=== PATIENT | female | born 1935 | race Caucasian/White ===

== ENCOUNTER 2017-03-15 15:03 | Emergency (ER) | payer MEDICARE ==
[~2017-03-15] VITALS: Ht 162.6 cm; Wt 60.0 kg
[~2017-03-15 15:03] MED LIST: FISH100020 OR; TAB-TAB PO
[2017-03-15 15:06] VITALS: BP 212/106; PULSE 101; RESP 20; TEMP 97.7; O2SAT 94
[2017-03-15] MEDS ORDERED: LISI-515 PO (15:10)
[2017-03-15 15:29] VITALS: O2SAT 97
[2017-03-15] MEDS ORDERED: SODIUM CHLORIDE 0.9% FLUSH 10 ML FLUSH IVF PRN (15:30)
--- NOTE | 2017-03-15 15:32 | PD ---
HPI Chief Complaint: Neuro Symptoms/ Deficits Time Seen by Provider: 15:14 Travel History International Travel<30 days: No Contact w/Intl Traveler<30days: No Traveled to known affect area: No History of Present Illness HPI The patient was seen and examined in the presence of the nurse. This patient woke up this morning and at 10 AM she developed some slurring of speech. She checked her blood pressure now is significantly elevated and she took a 20 mg lisinopril. She was a Bit confused as well. She did not have any muscle weakness or sensory loss. Her noted that her right side of her face was drooping. No headache or head injury. She takes no blood thinners. No history of stroke or TIA. Duration is 5.5 hours. Her speech has significantly improved and is readily understandable still has subtle facial droop. PFSH Past Medical History Cancer: No Cardiovascular Problems: Yes (HTN) Diabetes: No Hepatitis: No Hiatal Hernia: No Hypertension: No Medical other: No Respiratory: No Thyroid Disease: No Past Surgical History Abdominal Surgery: No Cardiac Surgery: No Ear Surgery: No Endocrine Surgery: No Eye Surgery: Yes (cataract removal of the right eye) Genitourinary Surgery: No Gynecologic Surgery: Yes (BENIGN GROWTH ON CERVIX 40+ YRS AGO) Neurologic Surgery: No Oral Surgery: Yes (TONSILLECTOMY) Pacemaker: No Thoracic Surgery: No Other Surgery: Yes Social History Alcohol Use: No Tobacco Use: No Allergies-Medications (Allergen,Severity, Reaction): Coded Allergies: No Known Allergies (Verified , 03/15/17) Reported Meds & Prescriptions Reported Meds & Active Scripts Active Reported Lisinopril 20 Mg Tab 20 Mg PO BID Review of Systems General / Constitutional: No: Fever Eyes: No: Visual changes HENT: No: Headaches Cardiovascular: No: Chest Pain or Discomfort Respiratory: No: Shortness of Breath Gastrointestinal: No: Abdominal Pain Genitourinary: No: Dysuria Musculoskeletal: No: Pain Skin: No Rash Neurologic: Positive: Weakness, Slurred Speech Psychiatric: No: Depression Endocrine: No: Polydipsia Hematologic/Lymphatic: No: Easy Bruising Physical Exam Narrative GENERAL: Well-nourished, well-developed patient in no apparent distress. SKIN: Focused skin assessment reveals no rash and nodules. Skin is Warm and dry. HEAD: Atraumatic. Normocephalic. EYES: Pupils equal and round. No scleral icterus. No injection or drainage. ENT: No nasal bleeding or discharge. Mucous membranes pink and moist. NECK: Trachea midline. No JVD. CARDIOVASCULAR: Regular rate and rhythm. No murmur appreciated. RESPIRATORY: No accessory muscle use. Clear to auscultation. Breath sounds equal bilaterally. GASTROINTESTINAL: Abdomen soft, non-tender, nondistended. Hepatic and splenic margins not palpable. MUSCULOSKELETAL: No obvious deformities. No clubbing. No cyanosis. No edema. NEUROLOGICAL: Awake and alert. No obvious cranial nerve deficits. Motor grossly within normal limits other than a right sided facial droop. Understandable speech, minimal slurring. When the patient smiles the droop resolves. PSYCHIATRIC: Appropriate mood and affect; insight and judgment normal. Data Data Last Documented VS Vital Signs Date Time Temp Pulse Resp B/P Pulse Ox O2 Delivery O2 Flow Rate FiO2 03/15/17 16:47 88 18 97 Nasal Cannula 2 03/15/17 16:46 175/80 03/15/17 15:06 97.7 Orders Electrocardiogram (03/15/17 15:23) Prothrombin Time / Inr (Pt) (03/15/17 15:23) Act Partial Throm Time (Ptt) (03/15/17 15:23) Complete Blood Count With Diff (03/15/17 15:23) Basic Metabolic Panel (Bmp) (03/15/17 15:23) Ct Brain W/O Iv Contrast(Rout) (03/15/17 15:23) Ecg Monitoring (03/15/17 15:23) Iv Access Insert/Monitor (03/15/17 15:23) Oximetry (03/15/17 15:23) Blood Glucose (03/15/17 15:23) Sodium Chloride 0.9% Flush (Ns Flush) (03/15/17 15:30) Labs Laboratory Tests Test 03/15/17 15:29 White Blood Count 11.1 TH/MM3 Red Blood Count 5.03 MIL/MM3 Hemoglobin 15.4 GM/DL Hematocrit 45.4 % Mean Corpuscular Volume 90.2 FL Mean Corpuscular Hemoglobin 30.7 PG Mean Corpuscular Hemoglobin 34.0 % Concent Red Cell Distribution Width 14.1 % Platelet Count 238 TH/MM3 Mean Platelet Volume 7.9 FL Neutrophils (%) (Auto) 62.9 % Lymphocytes (%) (Auto) 29.6 % Monocytes (%) (Auto) 6.4 % Eosinophils (%) (Auto) 0.4 % Basophils (%) (Auto) 0.7 % Neutrophils # (Auto) 7.0 TH/MM3 Lymphocytes # (Auto) 3.3 TH/MM3 Monocytes # (Auto) 0.7 TH/MM3 Eosinophils # (Auto) 0.0 TH/MM3 Basophils # (Auto) 0.1 TH/MM3 CBC Comment DIFF FINAL Differential Comment Prothrombin Time 10.2 SEC Prothromb Time International 0.9 RATIO Ratio Activated Partial 30.2 SEC Thromboplast Time MDM Medical Decision Making Medical Screen Exam Complete: Yes Emergency Medical Condition: Yes Medical Record Reviewed: Yes Differential Diagnosis TIA, CVA, intracranial hemorrhage, hypertensive urgency Narrative Course I have reviewed the patient's electronic medical record. No prior visits for stroke IV placed Extended cardiac monitoring reveals sinus rhythm without ectopy I reviewed her EKG which shows sinus rhythm without ectopy CBC is normal Metabolic profile is normal Coagulation studies are normal Brain CT is normal Patient is 5-1/2 hours out from symptom onset and has already had significant spontaneous improvement and therefore it does not meet TPA criteria nor need official stroke alert. At this time symptoms are mild. I reviewed all the findings with the patient and at bedside. I recommended hospitalization for neurologic evaluation given her CVA/TIA findings However the patient does not want to stay. Patient and discuss it and they have decided they will decline my recommendations and sign out AGAINST MEDICAL ADVICE. I reviewed there were a risk for a full-blown stroke and permanent neurologic deficit. I gave her an aspirin and recommended she take a daily aspirin. She is to contact her physician as soon as possible. She should return if she worsens or changes her mind. Diagnosis Primary Impression: CVA (cerebrovascular accident) Qualified Code: I63.9 - Cerebrovascular accident (CVA), unspecified mechanism Disposition: 07 AGAINST MEDICAL ADVICE Keyon Fuentes MD Mar 15, 2017 15:32
[2017-03-15 15:50] LABS: BASOPHIL # 0.1 TH/MM3 (0-0.2); BASOPHIL % 0.7 % (0.0-2.0); EOSINOPHIL % 0.4 % (0.0-4.0); HEMATOCRIT 45.4 % (35.0-46.0); HEMO FLAGS DIFF FINAL; LYMPH % 29.6 % (9.0-44.0); LYMPHOCYTE # 3.3 TH/MM3 (1.0-4.8); MEAN CELL VOLUME 90.2 FL (80.0-100.0); MEAN CORPUSCULAR HEMOGLOBIN 30.7 PG (27.0-34.0); MONO % 6.4 % (0.0-8.0); NEUT % 62.9 % (16.0-70.0); PLATELET COUNT 238 TH/MM3 (150-450); RED BLOOD COUNT 5.03 MIL/MM3 (4.00-5.30); RED CELL DISTRIBUTION WIDTH 14.1 % (11.6-17.2); WHITE BLOOD COUNT 11.1 TH/MM3 (4.0-11.0)
[2017-03-15 16:01] LABS: APTT (PATIENT) 30.2 SEC (24.3-30.1); INTERNATIONAL NORMALIZED RATIO 0.9 RATIO; PROTHROMBIN TIME - PATIENT 10.2 SEC (9.8-11.6)
--- NOTE | 2017-03-15 16:45 | RADRPT ---
EXAM DATE/TIME: 03/15/2017 16:34 [facility] COMPARISON: No previous studies available for comparison. INDICATIONS : Facial droop; facial droop. RADIATION DOSE: 26.73 CTDIvol (mGy) MEDICAL HISTORY : Cardiovascular disease. Hypertension. SURGICAL HISTORY : None. ENCOUNTER: Initial ACUITY: 1 day PAIN SCALE: 0/10 LOCATION: cranial TECHNIQUE: Multiple contiguous axial images were obtained of the head. Using automated exposure control and adj ustment of the mA and/or kV according to patient size, radiation dose was kept as low as reasonably a chievable to obtain optimal diagnostic quality images. DICOM format image data is available electro nically for review and comparison. FINDINGS: CEREBRUM: The ventricles are normal for age. No evidence of midline shift, mass lesion, hemorrhage or acute in farction. No extra-axial fluid collections are seen. POSTERIOR FOSSA: The cerebellum and brainstem are intact. The 4th ventricle is midline. The cerebellopontine angle i s unremarkable. EXTRACRANIAL: The visualized portion of the orbits is intact. SKULL: The calvaria is intact. No evidence of skull fracture. CONCLUSION: Normal examination. Rian Bansal MD on March 15, 2017 at 16:43 Board Certified Radiologist. This report was verified electronically.
[2017-03-15 16:46] VITALS: BP 175/80; PULSE 88; RESP 18; O2SAT 97
[2017-03-15] MEDS ORDERED: ASPIRIN 325 MG TAB PO ONE (17:30)
[2017-03-15 17:37] LABS: POTASSIUM 3.9 MEQ/L (3.5-5.1)
--- NOTE | 2017-03-16 12:19 | EKG ---
Date Performed: 03/15/2017 Time Performed: 15:27:18 PTAGE: 81 years EKG: Sinus rhythm LEFT BUNDLE BRANCH BLOCK ABNORMAL ECG NO PREVIOUS TRACING DOCTOR: Sha Hill Interpretating Date/Time 03/16/2017 12:17:48
== END 2017-03-15 18:03 | disposition left against medical advice (07) ==
LOC: NEPE 15:03
DX: I63.9 Cerebral infarction, unspecified (principal); I10 Essential (primary) hypertension
CPT/HCPCS: 70450; 80048; 85025; 85610; 85730; 93005; 99285

== ENCOUNTER 2017-03-17 08:48 | Inpatient (IN) | payer MEDICARE ==
[~2017-03-17] VITALS: Ht 162.6 cm; Wt 65.2 kg
[~2017-03-17 08:48] MED LIST changes: -FISH100020 OR; +LISI-515 PO; -TAB-TAB PO
[2017-03-17 08:51] VITALS: BP 203/89; PULSE 93; RESP 20; TEMP 98.3; O2SAT 95
[2017-03-17 09:13] VITALS: BP 160/65; PULSE 84; RESP 20; O2SAT 93
[2017-03-17] MEDS ORDERED: SODIUM CHLORID 0.9% 500 ML INJ 500 ML IV ONE (09:15)
[2017-03-17] MEDS ORDERED: SODIUM CHLORIDE 0.9% FLUSH 10 ML FLUSH IVF PRN (09:15)
[2017-03-17 09:34] LABS: AUTOMATED NEUTROPHIL # 5.8 TH/MM3 (1.8-7.7); BASOPHIL % 0.3 % (0.0-2.0); EOSINOPHIL # 0.1 TH/MM3 (0-0.4); EOSINOPHIL % 0.7 % (0.0-4.0); HEMATOCRIT 46.3 % (35.0-46.0); HEMO FLAGS DIFF FINAL; LYMPH % 30.5 % (9.0-44.0); LYMPHOCYTE # 2.8 TH/MM3 (1.0-4.8); MEAN CELL VOLUME 90.6 FL (80.0-100.0); MEAN CORPUSCULAR HGB CONC 33.1 % (32.0-36.0); MONO % 6.7 % (0.0-8.0); NEUT % 61.8 % (16.0-70.0); PLATELET COUNT 243 TH/MM3 (150-450); RED CELL DISTRIBUTION WIDTH 14.3 % (11.6-17.2); WHITE BLOOD COUNT 9.3 TH/MM3 (4.0-11.0)
[2017-03-17 09:41] LABS: INTERNATIONAL NORMALIZED RATIO 0.9 RATIO; PROTHROMBIN TIME - PATIENT 10.4 SEC (9.8-11.6)
--- NOTE | 2017-03-17 09:43 | RADRPT ---
EXAM DATE/TIME: 03/17/2017 09:24 [facility] COMPARISON: CT BRAIN W/O CONTRAST, March 15, 2017, 16:34. INDICATIONS : Slurred speech and difficulty walking since this morning. RADIATION DOSE: 56.35 CTDIvol (mGy) MEDICAL HISTORY : Hypertension. SURGICAL HISTORY : None. ENCOUNTER: Initial ACUITY: 1 day PAIN SCALE: 0/10 LOCATION: cranial TECHNIQUE: Multiple contiguous axial images were obtained of the head. Using automated exposure control and adj ustment of the mA and/or kV according to patient size, radiation dose was kept as low as reasonably a chievable to obtain optimal diagnostic quality images. DICOM format image data is available electro nically for review and comparison. FINDINGS: CEREBRUM: The exam demonstrates a focal area of decreased attenuation involving the left caudate nucleus and in sular cortex. This is new compared to previous dated 03/15/17. Findings would be consistent with an ev olving area of cortical infarct. There is no evidence of hemorrhage within this. The ventricles are n ormal in size and configuration. No extra-axial hemorrhage is seen. POSTERIOR FOSSA: The cerebellum and brainstem are intact. The 4th ventricle is midline. The cerebellopontine angle i s unremarkable. EXTRACRANIAL: The visualized portion of the orbits is intact. SKULL: The calvaria is intact. No evidence of skull fracture. CONCLUSION: 1. Evolving area of cortical infarct measuring approximately 1.7 x 0.8 cm. This is centered in the le ft caudate nucleus and insular cortex. Jackson Rodriguez MD on March 17, 2017 at 9:39 Board Certified Radiologist. This report was verified electronically.
[2017-03-17 09:52] LABS: ANION GAP 8 MEQ/L (5-15); BACTERIA, URINE MANY /hpf; BICARBONATE 25.8 MEQ/L (21.0-32.0); BLOOD UREA NITROGEN 21 MG/DL (7-18); BLOOD, URINE NEG (NEG); CHLORIDE 106 MEQ/L (98-107); COMMENT (UR) CATH-CULTURE IND; CULTURE IF INDICATED CATH CULTURE IND; GLOMERULAR FILTRATION RATE 61 ML/MIN (>89); GLUCOSE,URINE NEG (NEG); KETONE, URINE NEG (NEG); MUCUS URINE FEW /lpf (OCC); NITRITE,URINE NEG (NEG); PH, URINE 5.5 (5.0-8.5); POTASSIUM 3.8 MEQ/L (3.5-5.1); SODIUM (NA) 140 MEQ/L (136-145); SQUAMOUS EPITHELIAL CELL URINE 8 /hpf (0-5); TRANSITIONAL EPI CELLS, URINE <1 /hpf; URINE COLOR YELLOW (YELLW/STRAW)
[2017-03-17] MEDS ORDERED: NITROFURANTOIN MONOHYD MACROCR 100 MG CAP PO ONE (10:15)
[2017-03-17] MEDS ORDERED: SODIUM CHLOR 0.9% 250 ML INJ 250 ML IV ONE (10:15)
--- NOTE | 2017-03-17 10:42 | PD ---
HPI Chief Complaint: Neuro Symptoms/ Deficits Time Seen by Provider: 09:02 Travel History International Travel<30 days: No Contact w/Intl Traveler<30days: No Traveled to known affect area: No History of Present Illness HPI 81-year-old female came to the emergency room brought by her with history of shaking and facial droop. Patient seems little confused and had shaking started at 7:30 this morning. At first she told me she woke up at 8:00 which did not make sense with her symptoms and then she corrected herself and said she woke up at 7. Patient was in the emergency room 2 days ago for facial droop and slurred speech. Patient says her symptoms are waxing and waning especially the facial droop. Her says that he had left home at 6:30 to take his grandchildren to school. Was complaining of the shaking at that point to her . However he wanted to drop the grandchildren to school first and then bring her to the emergency room. The time of onset at this point is really confusing. However as per the documentation from the previous ER physician 2 days ago patient did have a persistent facial droop at that point. The onset was 45 and half hours 2 days ago. Patient eventually corrected herself and said that the symptoms have been going on for 2-3 days. She was hypertensive upon arrival. She said she took all her morning pills including her blood pressure medication prior to coming in. Blood sugar was 113. PFSH Past Medical History Narrative Medical List of her past medical, surgical, social and family history as reviewed from the nursing note. Cancer: No Cardiovascular Problems: Yes (HTN) Diabetes: No Diminished Hearing: No Hepatitis: No Hiatal Hernia: No Hypertension: No Respiratory: No Thyroid Disease: No Past Surgical History Abdominal Surgery: No Cardiac Surgery: No Ear Surgery: No Endocrine Surgery: No Eye Surgery: Yes (cataract removal of the right eye) Genitourinary Surgery: No Gynecologic Surgery: Yes (BENIGN GROWTH ON CERVIX 40+ YRS AGO) Neurologic Surgery: No Oral Surgery: Yes (TONSILLECTOMY) Pacemaker: No Thoracic Surgery: No Tonsillectomy: Yes Other Surgery: Yes Social History Alcohol Use: No Tobacco Use: No Substance Use: No Allergies-Medications (Allergen,Severity, Reaction): Coded Allergies: No Known Allergies (Verified , 03/17/17) Comments No known drug allergies. Reported Meds & Prescriptions Reported Meds & Active Scripts Active Reported Lisinopril 20 Mg Tab 20 Mg PO BID Narrative Medication List of her home medications reviewed from the nursing note. Review of Systems Except as stated in HPI: all other systems reviewed are Neg Physical Exam Narrative GENERAL: Awake, alert, elderly, anxious, mild distress SKIN: Focused skin assessment warm/dry. HEAD: Atraumatic. Normocephalic. EYES: Pupils equal and round. No scleral icterus. No injection or drainage. ENT: No nasal bleeding or discharge. Mucous membranes pink and moist. NECK: Trachea midline. No JVD. CARDIOVASCULAR: Regular rate and rhythm. No murmur appreciated. RESPIRATORY: No accessory muscle use. Clear to auscultation. Breath sounds equal bilaterally. GASTROINTESTINAL: Abdomen soft, non-tender, nondistended. Hepatic and splenic margins not palpable. MUSCULOSKELETAL: No obvious deformities. No clubbing. No cyanosis. No edema. NEUROLOGICAL: Awake and alert. No obvious cranial nerve deficits. Motor grossly within normal limits. Facial droop on the right side, ataxia left upper extremity. Normal speech. PSYCHIATRIC: Appropriate mood and affect; insight and judgment normal. Data Data Last Documented VS Vital Signs Date Time Temp Pulse Resp B/P Pulse Ox O2 Delivery O2 Flow Rate FiO2 03/17/17 09:13 84 20 160/65 93 Room Air 03/17/17 08:51 98.3 Orders Electrocardiogram (03/17/17 09:04) Prothrombin Time / Inr (Pt) (03/17/17 09:04) Complete Blood Count With Diff (03/17/17 09:04) Basic Metabolic Panel (Bmp) (03/17/17 09:04) Troponin I (03/17/17 09:04) Urinalysis - C+S If Indicated (03/17/17 09:04) Ct Brain W/O Iv Contrast(Rout) (03/17/17 09:04) Ecg Monitoring (03/17/17 09:04) Iv Access Insert/Monitor (03/17/17 09:04) Oximetry (03/17/17 09:04) Sodium Chloride 0.9% Flush (Ns Flush) (03/17/17 09:15) Mra Brain W/O Contrast (Cow) (03/17/17 ) Sodium Chlorid 0.9% 500 Ml Inj (Ns 500 M (03/17/17 09:15) Urine Culture (03/17/17 09:15) Nitrofurantoin Monohyd Macrocr (Macrobid (03/17/17 10:15) Sodium Chlor 0.9% 250 Ml Inj (Ns 250 Ml (03/17/17 10:15) Consult Neurology (03/17/17 ) Admit Order (Ed Use Only) (03/17/17 10:35) Admit To Inpatient (03/17/17 ) Code Status (03/17/17 10:37) Vital Signs (Adult) Q4H (03/17/17 10:37) Activity Oob With Assistance (03/17/17 10:37) Screed Operator / Telemetry .CONTINUOUS (03/17/17 10:37) Diet Heart Healthy (03/17/17 Lunch) Sodium Chloride 0.9% Flush (Ns Flush) (03/17/17 10:45) Sodium Chloride 0.9% Flush (Ns Flush) (03/17/17 21:00) Acetaminophen (Tylenol) (03/17/17 10:45) Ondansetron Inj (Zofran Inj) (03/17/17 10:45) Temazepam (Restoril) (03/17/17 10:45) Basic Metabolic Panel (Bmp) (03/18/17 06:00) Complete Blood Count With Diff (03/18/17 06:00) Chest, Single Ap (03/17/17 10:37) Pt Request For Service (03/17/17 10:37) Scd Bilateral/Knee High KATI.BID (03/17/17 10:37) Naloxone Inj (Narcan Inj) (03/17/17 10:45) Magnesium Hydroxide Liq (Milk Of Magnesi (03/17/17 10:45) Inpatient Certification (03/17/17 ) Labs Laboratory Tests Test 03/17/17 09:15 White Blood Count 9.3 TH/MM3 Red Blood Count 5.10 MIL/MM3 Hemoglobin 15.3 GM/DL Hematocrit 46.3 % Mean Corpuscular Volume 90.6 FL Mean Corpuscular Hemoglobin 30.0 PG Mean Corpuscular Hemoglobin 33.1 % Concent Red Cell Distribution Width 14.3 % Platelet Count 243 TH/MM3 Mean Platelet Volume 7.5 FL Neutrophils (%) (Auto) 61.8 % Lymphocytes (%) (Auto) 30.5 % Monocytes (%) (Auto) 6.7 % Eosinophils (%) (Auto) 0.7 % Basophils (%) (Auto) 0.3 % Neutrophils # (Auto) 5.8 TH/MM3 Lymphocytes # (Auto) 2.8 TH/MM3 Monocytes # (Auto) 0.6 TH/MM3 Eosinophils # (Auto) 0.1 TH/MM3 Basophils # (Auto) 0.0 TH/MM3 CBC Comment DIFF FINAL Differential Comment Prothrombin Time 10.4 SEC Prothromb Time International 0.9 RATIO Ratio Urine Color YELLOW Urine Turbidity HAZY Urine pH 5.5 Urine Specific Longs 1.009 Urine Protein NEG mg/dL Urine Glucose (UA) NEG mg/dL Urine Ketones NEG mg/dL Urine Occult Blood NEG Urine Nitrite NEG Urine Bilirubin NEG Urine Urobilinogen LESS THAN 2.0 MG/DL Urine Leukocyte Esterase LARGE Urine RBC 7 /hpf Urine WBC 8 /hpf Urine Squamous Epithelial 8 /hpf Cells Urine Transitional Epithelial <1 /hpf Cells Urine Bacteria MANY /hpf Urine Mucus FEW /lpf Microscopic Urinalysis Comment CATH-CULTURE IND Sodium Level 140 MEQ/L Potassium Level 3.8 MEQ/L Chloride Level 106 MEQ/L Carbon Dioxide Level 25.8 MEQ/L Anion Gap 8 MEQ/L Blood Urea Nitrogen 21 MG/DL Creatinine 0.89 MG/DL Estimat Glomerular Filtration 61 ML/MIN Rate Random Glucose 113 MG/DL Calcium Level 9.0 MG/DL Troponin I LESS THAN 0.02 NG/ML Vitamin B12 Level 575 PG/ML Folate 61.8 NG/ML Free Thyroxine 1.11 NG/DL Thyroid Stimulating Hormone 3.290 uIU/ML [facility] Medical Decision Making Medical Screen Exam Complete: Yes Emergency Medical Condition: Yes Medical Record Reviewed: Yes Interpretation(s) Twelve-lead EKG was reviewed by me. Normal sinus rhythm, normal axis, left bundle branch block. Heart rate of 84 bpm. Differential Diagnosis CVA, intracranial hemorrhage, intracranial mass Narrative Course 10:41 AM the CAT scan showed an evolving stroke. I discussed the case with Dr. Hutchison who is on-call for neurology. He thinks this is probably a lacunar infarct from hypertension. He agreed to have the patient be admitted for observation and he will consult on the patient. Obviously there is no indication for TPA given the length of time that has elapsed. I let the patient now and she has agreed to stay this time. Patient appears to be very anxious and I'll give her a dose of Xanax. Procedures EKG Prior to Arrival: No Physician Communication Physician Communication Dr. Hutchison Diagnosis Primary Impression: CVA (cerebrovascular accident) Qualified Code: I63.9 - Cerebrovascular accident (CVA), unspecified mechanism Additional Impression: Acute lacunar stroke Admitting Information Admitting Physician Requests: Observation Scripts Aspirin 325 Mg Aar278 Mg PO DAILY #30 TAB Ref 0 Prov:Brittani Davis 03/19/17 Pravastatin (Pravachol)40 Mg Tab40 Mg PO HS #31 TAB Prov:Brittani Davis 03/19/17 Mario Puentes MD Mar 17, 2017 10:42
[2017-03-17] MEDS ORDERED: ACETAMINOPHEN 325 MG TAB PO PRN (10:45)
[2017-03-17] MEDS ORDERED: SODIUM CHLORIDE 0.9% FLUSH 10 ML FLUSH IV FLUSH PRN (10:45)
[2017-03-17] MEDS ORDERED: TEMAZEPAM 15 MG CAP PO PRN (10:45)
[2017-03-17] MEDS ORDERED: MAGNESIUM HYDROXIDE SUSP 30 ML CUP PO PRN (10:45)
[2017-03-17] MEDS ORDERED: ALPRAZolam 0.5 MG TAB PO ONE (10:45)
[2017-03-17] MEDS ORDERED: ONDANSETRON HCL 4 MG/2 ML VIAL IVP PRN (10:45)
[2017-03-17] MEDS ORDERED: NALOXONE HCL 0.4 MG/ML AMP IV PRN (10:45)
--- NOTE | 2017-03-17 11:39 | RADRPT ---
EXAM DATE/TIME: 03/17/2017 10:47 [facility] COMPARISON: No previous studies available for comparison. INDICATIONS : Cough. MEDICAL HISTORY : Hypertension. SURGICAL HISTORY : None. ENCOUNTER: Initial ACUITY: 1 month PAIN SCORE: 0/10 LOCATION: Bilateral chest FINDINGS: A single view of the chest demonstrates the lungs to be symmetrically aerated without evidence of mas s, infiltrate or effusion. The cardiomediastinal contours are unremarkable. Osseous structures are intact. CONCLUSION: No acute disease. Sergio Paz Jr., MD on March 17, 2017 at 11:37 Board Certified Radiologist. This report was verified electronically.
[2017-03-17] MEDS: ASPIRIN 325 MG TAB PO SCH (12:12)
--- NOTE | 2017-03-17 12:16 | RADRPT ---
EXAM DATE/TIME: 03/17/2017 11:31 [facility] COMPARISON: No previous studies available for comparison. INDICATIONS : CVA. Facial droop, slurred speech, and right sided weakness. MEDICAL HISTORY : Hypertension. SURGICAL HISTORY : None. ENCOUNTER: Initial ACUITY: 3 day PAIN SCORE: 1/10 LOCATION: Bilateral cranial TECHNIQUE: Multiplanar, multisequence MRI of the brain was performed without contrast. FINDINGS: The diffusion restriction images demonstrate a focal air restricted diffusion involving the left caud ate nucleus and insular cortex. Findings would be consistent with a subacute area of cortical infarct . The T2-weighted images demonstrate some punctate, scattered areas of T2 signal in the white matter mo st consistent with mild microvascular ischemic demyelinative change. The ventricles are normal in size and configuration. No abnormal extra-axial fluid collections are se en. The appearance of the posterior fossa is unremarkable. Sagittal T1-weighted images demonstrate normal formation of the corpus callosum and midline structure s. The cerebellar tonsils are in their appropriate location. The visualized portion of sinus and orbit are intact. CONCLUSION: 1. Focal area of acute/subacute cortical infarct involving the left caudate nucleus and insular nancy x. No findings to indicate hemorrhage are seen. 2. Mild microvascular ischemic demyelinative change. Jackson Rodriguez MD on March 17, 2017 at 12:11 Board Certified Radiologist. This report was verified electronically.
--- NOTE | 2017-03-17 12:22 | RADRPT ---
EXAM DATE/TIME: 03/17/2017 11:31 [facility] COMPARISON: No previous studies available for comparison. INDICATIONS : CVA. Facial droop, slurred speech, and right sided weakness. MEDICAL HISTORY : Hypertension. SURGICAL HISTORY : None. ENCOUNTER: Initial ACUITY: 3 day PAIN SCORE: 1/10 LOCATION: Bilateral distal Please note a normal MRA of the brain does not entirely exclude the possibility of a small aneurysm, nor the possibility of distal intracranial vessel disease. TECHNIQUE: 3D time of flight MRA was performed. Source images, multiplanar STS MIP, and 3D volume MIP reconstru ctions were reviewed. FINDINGS: There is excellent visualization of the major intracranial arteries out to the second-order branch ve ssels. There is no evidence for aneurysm, vessel truncation or stenosis, and no evidence for vascula r malformation. CONCLUSION: 1. 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 2. No large or central vessel occlusion identified within the intracranial circulation. Jackson Rodriguez MD on March 17, 2017 at 12:19 Board Certified Radiologist. This report was verified electronically.
[2017-03-17 12:45] VITALS: BP 159/77; PULSE 72; RESP 16; O2SAT 95
--- NOTE | 2017-03-17 15:33 | MB ---
cc: MIKEY DESAI MD DATE OF CONSULTATION: 03/17/2017 REASON FOR CONSULTATION Possible stroke. HISTORY OF PRESENT ILLNESS A 81-year-old female is seen as a neurology consult, is seen after she presented to the [facility] Emergency Room, brought by her because of history of questionable shaking and right facial droop. Initially the patient seemed confused as per medical records. The patient states that she had whole body shaking. Denies foaming, loss of bowel or bladder control, tongue biting. The was at the bedside along with her son, states that she had whole body shaking for a few seconds. Denies that she was disoriented or any postictal state. The patient also had a similar episode on Friday03/15/2017 and both episodes were associated with a very high blood pressure of initially on Friday 211/106, whereas this morning it was 203/89. The patient is not certain whether she may have missed or not a dose of her blood pressure medication. She takes "sometimes aspirin 81 mg". The patient also was noted for a slurred speech and right facial droop. Review of the clinical case with the ED physician was done and the patient does not meet the criteria of IV TPA because the onset of the symptoms was outside the window as the onset of the symptom was [address] scan without contrast done in the emergency room initially on 2016 was reported as unremarkable. A followup head CT scan on 03/17/2017 revealed an evolving left caudate acute to subacute ischemic infarct. REVIEW OF SYSTEMS A 12-point review of systems is negative except for what is stated in the HPI. PAST MEDICAL HISTORY Hypertension. PAST SURGICAL HISTORY Cataract, tonsillectomy SOCIAL HISTORY Denies alcohol, tobacco or illicit drug abuse. ALLERGIES No known allergies. MEDICATIONS Lisinopril and occasional aspirin 81. PHYSICAL EXAMINATION GENERAL: Awake, alert, oriented, pleasant, good historian. HEENT: Atraumatic, normocephalic. Intact hearing. Intact vision. NECK: Supple. No carotid bruit. CARDIOVASCULAR: Regular rate and rhythm. RESPIRATORY: Clear to auscultation. No wheezes. GASTROINTESTINAL: Soft abdomen, nontender. MUSCULOSKELETAL: No deformity. No cyanosis. Moves extremities equally. NEUROLOGIC: Awake, alert, oriented to time, person and place. Mild dysarthria. No dysphagia. Intact reading, intact repetition and naming. Right facial nerve palsy. No nystagmus. Intact external ocular motility. Subtle right arm drift, 5-/5 right shoulder abduction and right hip flexion, otherwise 5/5 throughout. No abnormal movement, normal tone. Intact sensation bilateral and symmetrical. Intact cerebellar function bilateral and symmetrical. Reflexes 2+ bilateral and symmetrical. Plantars are bilaterally downgoing. PSYCHIATRIC: Appropriate mood and behavior and no hallucinations. LABORATORY DATA WBC 9.3, hemoglobin 15.3, platelet count 243, INR 0.9. Sodium 140, potassium 3.8, anion gap 8, BUN 21, creatinine 0.89. DIAGNOSTIC IMAGING STUDIES -Head CT scan without contrast reveals a left caudate acute/ subacute evolving left caudate ischemic infarction. DIAGNOSTIC IMPRESSION 1. Acute/subacute lacunar ischemic stroke in the left MCA perforating arteries territory. 2. Likely lacunar infarct secondary to uncontrolled hypertension. 3. History of hypertension. PLAN 1. Neuro checks q. 4 hourly. 2. Aspirin 162 mg daily. 3. DVT prophylaxis. 4. Telemetry. 5. Cardiac echo. 6. PT/OT recommendations are appreciated. 7. DVT prophylaxis. Thank you for the opportunity to participate in the care of your patient. MD ELVIRA Lal/JUDY /2:43 PM /3:05 PM GRAYSON
[2017-03-17 16:21] VITALS: BP 131/62; PULSE 69; RESP 20; TEMP 97.6; O2SAT 95
--- NOTE | 2017-03-17 16:42 | EKG ---
Date Performed: 03/17/2017 Time Performed: 09:10:52 PTAGE: 81 years EKG: Sinus rhythm LEFT BUNDLE BRANCH BLOCK ABNORMAL ECG PREVIOUS TRACING : 03/17/2017 09.10 Since previous tracing, no significant change noted DOCTOR: Jasmin Tan Interpretating Date/Time 03/17/2017 16:41:11
--- NOTE | 2017-03-17 16:43 | HHI.HP ---
HPI Service [facility] Hospitalists Primary Care Physician Dr. Sha Reynolds Admission Diagnosis CVA Travel History International Travel<30 Days: No Contact w/Intl Traveler <30 Da: No Traveled to Known Affected Are: No History of Present Illness Mrs. Angela is a 81 y/o female with HTN who was brought to the ED on 03/17/17 with complaints of confusion and facial droop. Pt had been seen in the ED on 07/20 with slurred speech and confusion. Her BP at that time was elevated to 212 /106. Head CT at that time was normal but pt was recommended admission. She left AMA at that time. The pts symptoms have waxed and waned over the last two days especially the facial droop. This morning she started having some "shaking " around 7:30AM. Pt presented back to the ED this morning around 0830AM and again was hypertensive upon arrival with BP 203/89. She said she took all her morning pills including her blood pressure medication prior to coming in. Head CT in the ED noted an evolving area of cortical infarct measuring approximately 1.7 x 0.8 cm, centered in the left caudate nucleus and insular cortex. Neurology was consulted in the ED. Review of Systems Constitutional: DENIES: Fever, Chills Eyes: DENIES: Vision loss Ears, nose, mouth, throat: DENIES: Hearing loss Respiratory: DENIES: Cough, Shortness of breath Cardiovascular: DENIES: Chest pain, Palpitations, Dyspnea on Exertion Gastrointestinal: DENIES: Abdominal pain, Constipation, Nausea, Vomiting Genitourinary: DENIES: Hematuria, Dysuria Musculoskeletal: DENIES: Back pain, Neck pain Integumentary: DENIES: Rash Neurologic: COMPLAINS OF: Speech Problems, DENIES: Headache, Localized weakness , Paresthesias Psychiatric: COMPLAINS OF: Confusion Past Family Social History Past Medical History Hypertension Past Surgical History Cataract surgery Tonsillectomy Reported Medications Lisinopril 20 Mg PO BID Allergies: Coded Allergies: No Known Allergies (Verified , 03/17/17) Family History Noncontributory Social History Hx of tobacco use, smoked 0.5 to 1 ppd x 30 years, quit at age 47 Occasional alcohol use Denies any illicit drug use Pt lives locally with her Physical Exam Vital Signs Vital Signs Date Time Temp Pulse Resp B/P Pulse Ox O2 Delivery O2 Flow Rate FiO2 03/17/17 12:45 72 16 159/77 95 Room Air 03/17/17 09:13 84 20 160/65 93 Room Air 03/17/17 08:51 98.3 93 20 203/89 95 Physical Exam GENERAL: This is a well-nourished, well-developed patient, in no apparent distress. HEENT: Atraumatic. Normocephalic. No temporal or scalp tenderness. No scleral icterus. Airway patent. NECK: Trachea midline, supple, nontender. CARDIO: Regular. RESP: CTA bilaterally. No wheezes, rales, or rhonchi. ABD: +BS, soft, non-tender, nondistended. EXT: Extremities without clubbing, cyanosis, or edema. NEURO: Awake and alert. Motor and sensory grossly within normal limits. Normal speech. Laboratory Laboratory Tests Test 03/17/17 09:15 White Blood Count 9.3 Red Blood Count 5.10 Hemoglobin 15.3 Hematocrit 46.3 Mean Corpuscular Volume 90.6 Mean Corpuscular Hemoglobin 30.0 Mean Corpuscular Hemoglobin 33.1 Concent Red Cell Distribution Width 14.3 Platelet Count 243 Mean Platelet Volume 7.5 Neutrophils (%) (Auto) 61.8 Lymphocytes (%) (Auto) 30.5 Monocytes (%) (Auto) 6.7 Eosinophils (%) (Auto) 0.7 Basophils (%) (Auto) 0.3 Neutrophils # (Auto) 5.8 Lymphocytes # (Auto) 2.8 Monocytes # (Auto) 0.6 Eosinophils # (Auto) 0.1 Basophils # (Auto) 0.0 CBC Comment DIFF FINAL Differential Comment Prothrombin Time 10.4 Prothromb Time International 0.9 Ratio Urine Color YELLOW Urine Turbidity HAZY Urine pH 5.5 Urine Specific [place] 1.009 Urine Protein NEG Urine Glucose (UA) NEG Urine Ketones NEG Urine Occult Blood NEG Urine Nitrite NEG Urine Bilirubin NEG Urine Urobilinogen LESS THAN 2.0 Urine Leukocyte Esterase LARGE Urine RBC 7 Urine WBC 8 Urine Squamous Epithelial 8 Cells Urine Transitional Epithelial <1 Cells Urine Bacteria MANY Urine Mucus FEW Microscopic Urinalysis Comment CATH-CULTURE IND Sodium Level 140 Potassium Level 3.8 Chloride Level 106 Carbon Dioxide Level 25.8 Anion Gap 8 Blood Urea Nitrogen 21 Creatinine 0.89 Estimat Glomerular Filtration 61 Rate Random Glucose 113 Calcium Level 9.0 Troponin I LESS THAN 0.02 Date/Time Procedure Status Source Growth 03/17/17 09:15 Urine Culture Received Urine Catheterized Urine Pending Result Diagram: 03/17/17 0915 03/17/17 0915 Imaging Last Impressions Chest X-Ray 03/17/17 1037 Signed Impressions: Service Date/Time: Friday, March 17, 2017 10:47 - CONCLUSION: No acute disease. Sergio Paz Jr., MD Head CT 03/17/17 0904 Signed Impressions: Service Date/Time: Friday, March 17, 2017 09:24 - CONCLUSION: 1. Evolving area of cortical infarct measuring approximately 1.7 x 0.8 cm. This is centered in the left caudate nucleus and insular cortex. Jackson Rodriguez MD Head Magnetic Resonance Angiography 03/17/17 0000 Signed Impressions: Service Date/Time: Friday, March 17, 2017 11:31 - CONCLUSION: 1. 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 2. No large or central vessel occlusion identified within the intracranial circulation. Jackson Rodriguez MD Brain MRI 03/17/17 0000 Signed Impressions: Service Date/Time: Friday, March 17, 2017 11:31 - CONCLUSION: 1. Focal area of acute/subacute cortical infarct involving the left caudate nucleus and insular cortex. No findings to indicate hemorrhage are seen. 2. Mild microvascular ischemic demyelinative change. Jackson Rodriguez MD Septic Shock Reassessment Heart: Regular rate and rhythm Lungs: Clear Skin: Warm Assessment and Plan Problem List: (1) CVA (cerebrovascular accident) Status: Acute Plan: - Pt is a 81 y/o with HTN who initially developed symptoms of slurred speech and confusion two days prior to admission. - She was seen in the ED on 03/15/[address] at that time was negative. Pt left AMA. - She presented back to the ED on 03/17/17 with continued waxing and waning of her symptoms. - Head CT (03/17) --> Evolving area of cortical infarct measuring approximately 1.7 x 0.8 cm, centered in the left caudate nucleus and insular cortex. - Brain MRI (03/17) --> Focal area of acute/subacute cortical infarct involving the left caudate nucleus and insular cortex. No findings to indicate hemorrhage are seen. Mild microvascular ischemic demyelinative change. 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 No large or central vessel occlusion identified within the intracranial circulation. - Neurology following. - Carotid US - 2D echo - Holter Monitor/Telemetry - Telemetry - Neuro checks - ASA - FLP in AM - Check TSH/Free T4, Vitamin B12, Folate, Ammonia - PT/OT - Supportive care (2) HTN (hypertension) Status: Chronic Plan: - Pt takes Lisinopril 20mg BID at home - This is on hold for permissive HTN Assessment and Plan Patient examined. Assessment and plan formulated with Brittani Davis PA-C. I agree with the above. Physician Certification 2 Midnight Certification Type: Admission for Inpatient Services Order for Inpatient Services The services are ordered in accordance with Medicare regulations or non- Medicare payer requirements, as applicable. In the case of services not specified as inpatient-only, they are appropriately provided as inpatient services in accordance with the 2-midnight benchmark. Estimated LOS (days): 3 3 days is the estimated time the patient will need to remain in the hospital, assuming treatment plan goals are met and no additional complications. Post-Hospital Plan: Not yet determined Problem Qualifiers (1) CVA (cerebrovascular accident): Brittani Davis Mar 17, 2017 16:43 Ramin Mireles DO Mar 23, 2017 22:32
--- NOTE | 2017-03-17 18:42 | RADRPT ---
EXAM DATE/TIME: 03/17/2017 17:39 [place] COMPARISON: No previous studies available for comparison. INDICATIONS : Difficulty walking and slurred speech with facial drooping. MEDICAL HISTORY : Hypertension. SURGICAL HISTORY : Tonsillectomy. Gynecological surgery. Cataracts. ENCOUNTER: Initial ACUITY: 1 day PAIN SCORE: 0/10 LOCATION: Bilateral neck PEAK SYSTOLIC VELOCITIES (cm/sec): ICA/CCA RATIO: Right: 1.1 Left: 0.9 ICA: Right: 59.6 Left: 68.7 CCA: Right: 54.3 Left: 72.5 ECA: Right: 55.6 Left: 66.8 VERTEBRAL: Right: 31.3 antegrade Left: 32.9 antegrade Elevated flow velocities and ICA/CCA ratios have been found to correlate with increased degrees of vessel stenosis, calculated as percentage of diameter relative to a normal segment of distal ICA/CCA FINDINGS: RIGHT CAROTID: Trace plaque seen at the bulb and proximal internal carotid artery. LEFT CAROTID: Short segment moderate severity atherosclerotic plaque of the bulb. VERTEBRAL ARTERIES: Antegrade flow is seen in both vertebral arteries. MISCELLANEOUS: None. CONCLUSION: Carotid bifurcation atherosclerosis, minimal on the right and focally moderate on the left. No hemody namically significant narrowing. Rian Cuenca MD on March 17, 2017 at 18:39 Board Certified Radiologist. This report was verified electronically.
[2017-03-17 18:55] VITALS: BP 168/77; PULSE 70; RESP 18; TEMP 97.7; O2SAT 94
[2017-03-17] MEDS: PRAVASTATIN SOD 40 MG TAB PO SCH (22:42)
[2017-03-17] MEDS: SODIUM CHLORIDE 0.9% FLUSH 10 ML FLUSH IV FLUSH SCH (22:43)
[2017-03-17 23:34] VITALS: BP 164/74; PULSE 76; RESP 17; TEMP 98; O2SAT 93
[2017-03-18 03:27] LABS: FREE T4 1.11 NG/DL (0.76-1.46)
[2017-03-18 05:30] VITALS: BP 139/69; PULSE 69; RESP 19; TEMP 98; O2SAT 96
[2017-03-18 08:21] VITALS: BP 197/88; PULSE 80; RESP 20; TEMP 98.7; O2SAT 94
[2017-03-18] MEDS: SODIUM CHLORIDE 0.9% FLUSH 10 ML FLUSH IV FLUSH SCH ×2 (09:19→22:22)
[2017-03-18] MEDS: ASPIRIN 325 MG TAB PO SCH (09:19)
[2017-03-18 10:29] VITALS: PULSE 70
[2017-03-18 11:16] LABS: AUTOMATED NEUTROPHIL # 5.8 TH/MM3 (1.8-7.7); BASOPHIL % 0.5 % (0.0-2.0); EOSINOPHIL % 0.5 % (0.0-4.0); HEMATOCRIT 41.7 % (35.0-46.0); HEMO FLAGS DIFF FINAL; LYMPH % 24.8 % (9.0-44.0); LYMPHOCYTE # 2.2 TH/MM3 (1.0-4.8); MEAN CELL VOLUME 90.8 FL (80.0-100.0); MEAN CORPUSCULAR HEMOGLOBIN 30.8 PG (27.0-34.0); MONO % 7.2 % (0.0-8.0); PLATELET COUNT 216 TH/MM3 (150-450); RED BLOOD COUNT 4.59 MIL/MM3 (4.00-5.30); RED CELL DISTRIBUTION WIDTH 13.8 % (11.6-17.2); WHITE BLOOD COUNT 8.7 TH/MM3 (4.0-11.0)
[2017-03-18 11:25] LABS: ANION GAP 9 MEQ/L (5-15); BICARBONATE 26.5 MEQ/L (21.0-32.0); BLOOD UREA NITROGEN 17 MG/DL (7-18); CHLORIDE 108 MEQ/L (98-107); GLOMERULAR FILTRATION RATE 73 ML/MIN (>89); POTASSIUM 3.7 MEQ/L (3.5-5.1); SODIUM (NA) 143 MEQ/L (136-145)
[2017-03-18 11:27] LABS: HDL CHOLESTEROL 68.1 MG/DL (40.0-60.0); LDL CHOLESTEROL 119 MG/DL (0-99)
[2017-03-18 11:43] VITALS: BP 160/82; PULSE 68; RESP 20; TEMP 97.7; O2SAT 93
--- NOTE | 2017-03-18 14:39 | HHI.PR ---
Subjective Remarks No new complaints Pt ambulated 500' with PT today but was recommended for HHC/PT She is eating and drinking without difficulty Objective Vitals Vital Signs Date Time Temp Pulse Resp B/P Pulse Ox O2 Delivery O2 Flow Rate FiO2 03/18/17 11:43 97.7 68 20 160/82 93 03/18/17 10:29 70 03/18/17 08:21 98.7 80 20 197/88 94 03/18/17 05:30 98.0 69 19 139/69 96 03/17/17 23:34 98.0 76 17 164/74 93 03/17/17 18:55 97.7 70 18 168/77 94 03/17/17 16:21 97.6 69 20 131/62 95 03/17/17 03/17/17 03/18/17 15:00 23:00 07:00 Intake Total 200 ml 400 ml Balance 200 ml 400 ml Intake Oral 200 ml 400 ml # Voids 1 1 # Bowel Movements 0 Result Diagram: 03/18/17 1033 03/18/17 1003 Other Results Laboratory Tests Test 03/17/17 03/18/17 03/18/17 09:15 10:03 10:33 White Blood Count 9.3 TH/MM3 8.7 TH/MM3 Red Blood Count 5.10 MIL/MM3 4.59 MIL/MM3 Hemoglobin 15.3 GM/DL 14.1 GM/DL Hematocrit 46.3 % 41.7 % Mean Corpuscular Volume 90.6 FL 90.8 FL Mean Corpuscular Hemoglobin 30.0 PG 30.8 PG Mean Corpuscular Hemoglobin 33.1 % 34.0 % Concent Red Cell Distribution Width 14.3 % 13.8 % Platelet Count 243 TH/MM3 216 TH/MM3 Mean Platelet Volume 7.5 FL 7.4 FL Neutrophils (%) (Auto) 61.8 % 67.0 % Lymphocytes (%) (Auto) 30.5 % 24.8 % Monocytes (%) (Auto) 6.7 % 7.2 % Eosinophils (%) (Auto) 0.7 % 0.5 % Basophils (%) (Auto) 0.3 % 0.5 % Neutrophils # (Auto) 5.8 TH/MM3 5.8 TH/MM3 Lymphocytes # (Auto) 2.8 TH/MM3 2.2 TH/MM3 Monocytes # (Auto) 0.6 TH/MM3 0.6 TH/MM3 Eosinophils # (Auto) 0.1 TH/MM3 0.0 TH/MM3 Basophils # (Auto) 0.0 TH/MM3 0.0 TH/MM3 CBC Comment DIFF FINAL DIFF FINAL Differential Comment Prothrombin Time 10.4 SEC Prothromb Time International 0.9 RATIO Ratio Urine Color YELLOW Urine Turbidity HAZY Urine pH 5.5 Urine Specific [place] 1.009 Urine Protein NEG mg/dL Urine Glucose (UA) NEG mg/dL Urine Ketones NEG mg/dL Urine Occult Blood NEG Urine Nitrite NEG Urine Bilirubin NEG Urine Urobilinogen LESS THAN 2.0 MG/DL Urine Leukocyte Esterase LARGE Urine RBC 7 /hpf Urine WBC 8 /hpf Urine Squamous Epithelial 8 /hpf Cells Urine Transitional Epithelial <1 /hpf Cells Urine Bacteria MANY /hpf Urine Mucus FEW /lpf Microscopic Urinalysis Comment CATH-CULTURE IND Sodium Level 140 MEQ/L 143 MEQ/L Potassium Level 3.8 MEQ/L 3.7 MEQ/L Chloride Level 106 MEQ/L 108 MEQ/L Carbon Dioxide Level 25.8 MEQ/L 26.5 MEQ/L Anion Gap 8 MEQ/L 9 MEQ/L Blood Urea Nitrogen 21 MG/DL 17 MG/DL Creatinine 0.89 MG/DL 0.76 MG/DL Estimat Glomerular Filtration 61 ML/MIN 73 ML/MIN Rate Random Glucose 113 MG/DL 105 MG/DL Calcium Level 9.0 MG/DL 8.5 MG/DL Troponin I LESS THAN 0.02 NG/ML Vitamin B12 Level 575 PG/ML Folate 61.8 NG/ML Free Thyroxine 1.11 NG/DL Thyroid Stimulating Hormone 3.290 uIU/ML 3rd Gen Triglycerides Level 126 MG/DL Cholesterol Level 212 MG/DL LDL Cholesterol 119 MG/DL HDL Cholesterol 68.1 MG/DL Cholesterol/HDL Ratio 3.11 RATIO Ammonia 26 MCMOL/L Imaging Last Impressions Chest X-Ray 03/17/17 1037 Signed Impressions: Service Date/Time: Friday, March 17, 2017 10:47 - CONCLUSION: No acute disease. Sergio Paz Jr., MD Head CT 03/17/17 0904 Signed Impressions: Service Date/Time: Friday, March 17, 2017 09:24 - CONCLUSION: 1. Evolving area of cortical infarct measuring approximately 1.7 x 0.8 cm. This is centered in the left caudate nucleus and insular cortex. Jackson Rodriguez MD Head Magnetic Resonance Angiography 03/17/17 0000 Signed Impressions: Service Date/Time: Friday, March 17, 2017 11:31 - CONCLUSION: 1. 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 2. No large or central vessel occlusion identified within the intracranial circulation. Jackson Rodriguez MD Carotid Artery Ultrasound 03/17/17 0000 Signed Impressions: Service Date/Time: Friday, March 17, 2017 17:39 - CONCLUSION: Carotid bifurcation atherosclerosis, minimal on the right and focally moderate on the left. No hemodynamically significant narrowing. Rian Cuenca MD Brain MRI 03/17/17 0000 Signed Impressions: Service Date/Time: Friday, March 17, 2017 11:31 - CONCLUSION: 1. Focal area of acute/subacute cortical infarct involving the left caudate nucleus and insular cortex. No findings to indicate hemorrhage are seen. 2. Mild microvascular ischemic demyelinative change. Jackson Rodriguez MD Objective Remarks General: NAD, AAOx3 Chest: CTA Cardiac: Regular Abd: +BS, soft ND/NT Ext: No edema A/P Problem List: (1) CVA (cerebrovascular accident) Status: Acute Plan: - Pt is a 81 y/o with HTN who initially developed symptoms of slurred speech and confusion two days prior to admission. - She was seen in the ED on 03/15/[address] at that time was negative. Pt left AMA. - She presented back to the ED on 03/17/17 with continued waxing and waning of her symptoms. - Head CT (03/17) --> Evolving area of cortical infarct measuring approximately 1.7 x 0.8 cm, centered in the left caudate nucleus and insular cortex. - Brain MRI (03/17) --> Focal area of acute/subacute cortical infarct involving the left caudate nucleus and insular cortex. No findings to indicate hemorrhage are seen. Mild microvascular ischemic demyelinative change. 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 No large or central vessel occlusion identified within the intracranial circulation. - Neurology following. - Carotid US --> Carotid bifurcation atherosclerosis, minimal on the right and focally moderate on the left. No hemodynamically significant narrowing. - 2D echo --> Pending - Holter Monitor --> Pending - Telemetry --> NSR with Hr in the 70's - Neuro checks - ASA - FLP with LDL 119, HDL 68.1, Total cholesterol 212, Triglycerides 126. - TSH/Free T4, Vitamin B12, Folate, Ammonia are all stable. - PT/OT - Supportive care (2) HTN (hypertension) Status: Chronic Plan: - Pt takes Lisinopril 20mg BID at home - We will resume this today Assessment and Plan Patient examined. Assessment and plan formulated with Brittani Davis PA-C. I agree with the above. Problem Qualifiers (1) CVA (cerebrovascular accident): Brittani Davis Mar 18, 2017 14:39 Ramin Mireles DO Mar 23, 2017 22:31
[2017-03-18 15:55] VITALS: BP 165/74; PULSE 66; RESP 20; TEMP 95; O2SAT 97
[2017-03-18 16:00] LABS: HEMOGLOBIN A1a 0.9 %; HEMOGLOBIN A1b 1.9 %; HEMOGLOBIN Ao 84.5 %; HEMOGLOBIN LA1C 2.2 %; HEMOGLOBIN P3 5.5 %
--- NOTE | 2017-03-18 16:09 | HHI.FF ---
Face to Face Verification Diagnosis: (1) CVA (cerebrovascular accident) (2) HTN (hypertension) Physical Therapy Order: Evaluate and Treat, Improve ambulation, Strength and gait training Home Health Nursing Order: Nursing assessment with vital signs I have seen patient Venus Angela on 03/18/17. My clinical findings support the need for the requested home health care services because: High risk of falls I certify that my clinical findings support that this patient is homebound because: Unsteady gait/balance Brittani Davis Mar 18, 2017 16:09
--- NOTE | 2017-03-18 16:34 | ECHRPT ---
Indication: CVA/TIA CONCLUSIONS The left ventricular systolic function is mildly reduced with an estimated ejection fraction in the range of 45- 50%. Wall thickness is measured at the upper limits of normal. Doppler parameters are consistent with impaired left ventricular relaxtion (grade 1 diastolic dysfun ction). Mild mitral valve regurgitation. There is trace tricuspid valve regurgitation. BP: 160 / 65 HR: 84 Rhythm: Sinus MEASUREMENTS (Male / Female) Normal Values Technical Quality:Fair 2D ECHO LV Diastolic Diameter PLAX 4.0 cm 4.2 - 5.9 / 3.9 - 5.3 cm LV Systolic Diameter PLAX 3.3 cm IVS Diastolic Thickness 1.2 cm 0.6 - 1.0 / 0.6 - 0.9 cm LVPW Diastolic Thickness 1.0 cm 0.6 - 1.0 / 0.6 - 0.9 cm LV Relative Wall Thickness 0.5 RV Internal Dim ED PLAX 2.0 cm LVOT Diameter 2.0 cm LA Systolic Diameter LX 2.6 cm 3.0 - 4.0 / 2.7 - 3.8 cm M-MODE Aortic Root Diameter MM 2.9 cm AV Cusp Separation MM 2.0 cm DOPPLER AV Peak Velocity 129.0 cm/s AV Peak Gradient 6.7 mmHg LVOT Peak Velocity 77.0 cm/s LVOT Peak Gradient 2.4 mmHg AV Area Cont Eq pk 1.9 cm MR Peak Velocity 422.0 cm/s MR Peak Gradient 71.2 mmHg Mitral E Point Velocity 80.0 cm/s Mitral A Point Velocity 109.0 cm/s Mitral E to A Ratio 0.7 LV E' Lateral Velocity 8.2 cm/s Mitral E to LV E' Lateral Ratio 9.8 LV E' Septal Velocity 9.1 cm/s Mitral E to LV E' Septal Ratio 8.8 TR Peak Velocity 228.0 cm/s TR Peak Gradient 20.8 mmHg PV Peak Velocity 81.4 cm/s PV Peak Gradient 2.7 mmHg FINDINGS LEFT VENTRICLE The left ventricular systolic function is mildly reduced with an estimated ejection fraction in the range of 45- 50%. Wall thickness is measured at the upper limits of normal. Normal left ventricular size. Doppler parameters are consistent with impaired left ventricular relaxtion (grade 1 diastolic dysfun ction). RIGHT VENTRICLE Normal right ventricular size and systolic function. LEFT ATRIUM The left atrial size is normal. RIGHT ATRIUM The right atrial size is normal. ATRIAL SEPTUM The interatrial septum not well visualized. AORTA The aortic root and proximal ascending aorta are not well visualized. MITRAL VALVE Structurally normal mitral valve. No mitral valve stenosis. Mild mitral valve regurgitation. AORTIC VALVE No aortic valve stenosis or regurgitation. TRICUSPID VALVE There is trace tricuspid valve regurgitation. The estimated pulmonary arterial pressure is 26 mmHg. PULMONARY VALVE The pulmonary valve is not well visualized. VESSELS The inferior vena cava is normal in size. PERICARDIUM No pericardial effusion. Joey Jeffers DO (Electronically Signed) Final Date:18 March 2017 16:33
--- NOTE | 2017-03-18 17:05 | HHI.PR ---
Review/Management Diagnosis 1. Acute/subacute lacunar ischemic stroke in the left MCA perforating arteries territory. Likely lacunar infarct secondary to uncontrolled hypertension. 2. History of hypertension. Plan - Neuro checks q. 4 hourly. - Aspirin 162 mg daily - DVT prophylaxis. - PT/OT recommendations are appreciated. - DVT prophylaxis - Patient is stable from neurologic stand point - Follow up with neurology outpatient - Please call for questions Diagnosis/Plan: Subjective Subjective Comments No acute events reported at bed side Patient feels better, no headache, very subtle dysarthria Normal swallowing Worked with PT Cardiac ECHO with EF 45-50% CUS with no hemodynamically significant stenosis Active Medications Current Medications Medications (Trade) Dose Ordered Sig/Andreas Route Start Time Stop Time Status Last Admin (NS Flush) 2 ml UNSCH PRN IV FLUSH 03/17/17 10:45 (NS Flush) 2 ml BID IV FLUSH 03/17/17 21:00 03/18/17 09:19 (Tylenol) 650 mg Q4H PRN PO 03/17/17 10:45 (Zofran Inj) 4 mg Q6H PRN IVP 03/17/17 10:45 (Restoril) 15 mg HS PRN PO 03/17/17 10:45 (Narcan Inj) 0.4 mg UNSCH PRN IV 03/17/17 10:45 (Milk Of Magnesia Liq) 30 ml Q12H PRN PO 03/17/17 10:45 (Aspirin) 325 mg DAILY PO 03/17/17 11:00 03/18/17 09:19 (Pravachol) 40 mg HS PO 03/17/17 21:00 03/17/17 22:42 (Prinivil) 20 mg BID PO 03/18/17 21:00 Allergies Allergies Coded Allergies No Known Allergies (Verified03/17/17) Review of Systems All other ROS: ROS reviewed as documented in chart Exam I&O / VS 03/17/17 03/17/17 03/18/17 14:59 22:59 06:59 Intake Total 200 ml 400 ml Balance 200 ml 400 ml Intake Oral 200 ml 400 ml # Voids 1 1 # Bowel Movements 0 Vital Signs Date Time Temp Pulse Resp B/P Pulse Ox O2 Delivery O2 Flow Rate FiO2 03/18/17 15:55 95.0 66 20 165/74 97 03/18/17 11:43 97.7 68 20 160/82 93 03/18/17 10:29 70 03/18/17 08:21 98.7 80 20 197/88 94 03/18/17 05:30 98.0 69 19 139/69 96 03/17/17 23:34 98.0 76 17 164/74 93 03/17/17 18:55 97.7 70 18 168/77 94 Exam Comments GENERAL: Awake, alert, oriented, pleasant HEENT: Atraumatic, normocephalic. Intact hearing. Intact vision. NECK: Supple. No carotid bruit. CARDIOVASCULAR: Regular rate and rhythm. RESPIRATORY: Clear to auscultation. No wheezes. GASTROINTESTINAL: Soft abdomen, nontender. MUSCULOSKELETAL: No deformity. No cyanosis. Moves extremities equally. NEUROLOGIC: Awake, alert, oriented to time, person and place. Subtle dysarthria. No dysphagia. Intact reading, intact repetition and naming. 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 No nystagmus. Intact external ocular motility. Subtle right arm drift, 5-/5 right shoulder abduction and right hip flexion, otherwise 5/5 throughout. No abnormal movement, normal tone. Intact sensation bilateral and symmetrical. Intact cerebellar function bilateral and symmetrical. Reflexes 2+ bilateral and symmetrical. Plantars are bilaterally downgoing. PSYCHIATRIC: Appropriate mood and behavior and no hallucinations. Objective Radiology Results Last 72 hours Impressions Chest X-Ray 03/17/17 1037 Signed Impressions: Service Date/Time: Friday, March 17, 2017 10:47 - CONCLUSION: No acute disease. Sergio Paz Jr., MD Head CT 03/17/17 0904 Signed Impressions: Service Date/Time: Friday, March 17, 2017 09:24 - CONCLUSION: 1. Evolving area of cortical infarct measuring approximately 1.7 x 0.8 cm. This is centered in the left caudate nucleus and insular cortex. Jackson Rodriguez MD Head Magnetic Resonance Angiography 03/17/17 0000 Signed Impressions: Service Date/Time: Friday, March 17, 2017 11:31 - CONCLUSION: 1. 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 2. No large or central vessel occlusion identified within the intracranial circulation. Jackson Rodriguez MD Carotid Artery Ultrasound 03/17/17 0000 Signed Impressions: Service Date/Time: Friday, March 17, 2017 17:39 - CONCLUSION: Carotid bifurcation atherosclerosis, minimal on the right and focally moderate on the left. No hemodynamically significant narrowing. Rian Cuenca MD Brain MRI 03/17/17 0000 Signed Impressions: Service Date/Time: Friday, March 17, 2017 11:31 - CONCLUSION: 1. Focal area of acute/subacute cortical infarct involving the left caudate nucleus and insular cortex. No findings to indicate hemorrhage are seen. 2. Mild microvascular ischemic demyelinative change. Jackson Rodriguez MD Micro and Labs Laboratory Tests Test 03/18/17 03/18/17 10:03 10:33 Sodium Level 143 Potassium Level 3.7 Chloride Level 108 Carbon Dioxide Level 26.5 Anion Gap 9 Blood Urea Nitrogen 17 Creatinine 0.76 Estimat Glomerular Filtration 73 Rate Random Glucose 105 Calcium Level 8.5 Triglycerides Level 126 Cholesterol Level 212 LDL Cholesterol 119 HDL Cholesterol 68.1 Cholesterol/HDL Ratio 3.11 White Blood Count 8.7 Red Blood Count 4.59 Hemoglobin 14.1 Hematocrit 41.7 Mean Corpuscular Volume 90.8 Mean Corpuscular Hemoglobin 30.8 Mean Corpuscular Hemoglobin 34.0 Concent Red Cell Distribution Width 13.8 Platelet Count 216 Mean Platelet Volume 7.4 Neutrophils (%) (Auto) 67.0 Lymphocytes (%) (Auto) 24.8 Monocytes (%) (Auto) 7.2 Eosinophils (%) (Auto) 0.5 Basophils (%) (Auto) 0.5 Neutrophils # (Auto) 5.8 Lymphocytes # (Auto) 2.2 Monocytes # (Auto) 0.6 Eosinophils # (Auto) 0.0 Basophils # (Auto) 0.0 CBC Comment DIFF FINAL Differential Comment Ammonia 26 Date/Time Procedure Status Source Growth 03/17/17 09:15 Urine Culture - Preliminary Resulted Urine Catheterized Urine IMMATURE GROWTH - REINCUBATE Louie Hutchison MD Mar 18, 2017 17:05
[2017-03-18 20:00] VITALS: BP 135/79; PULSE 73; RESP 17; TEMP 98.1; O2SAT 97
[2017-03-18] MEDS: LISINOPRIL 20 MG TAB PO SCH (22:21)
[2017-03-18] MEDS: PRAVASTATIN SOD 40 MG TAB PO SCH (22:21)
[2017-03-19] VITALS (7 sets, daily range): BP systolic 120–158; BP diastolic 60–79; PULSE 63–99; RESP 17–20; TEMP 97.2–98.3; O2SAT 92–96
[2017-03-19] MEDS ORDERED: ASPIRIN 325 MG TAB PO ONE (06:45)
[2017-03-19] MEDS ORDERED: NITROGLYCERIN 0.4 MG SL 25 TABS/BTL SL ONE (06:45)
--- NOTE | 2017-03-19 07:08 | RADRPT ---
EXAM DATE/TIME: 03/19/2017 06:45 [facility] COMPARISON: CHEST SINGLE AP, March 17, 2017, 10:47. INDICATIONS : Chest pain. MEDICAL HISTORY : None. SURGICAL HISTORY : None. ENCOUNTER: Subsequent ACUITY: 3 days PAIN SCORE: 0/10 LOCATION: Bilateral chest FINDINGS: A single view of the chest demonstrates the lungs to be symmetrically aerated without evidence of mas s, infiltrate or effusion. The cardiomediastinal contours are unremarkable. Osseous structures are intact. CONCLUSION: Normal examination. Tay Montez MD on March 19, 2017 at 7:07 Board Certified Radiologist. This report was verified electronically.
--- NOTE | 2017-03-19 08:07 | PD.CONS ---
HPI Service cardiology Consult Requested By Leticia Reason for Consult chest pain Primary Care Physician Unknown History of Present Illness 81 yo WF with no prior cardiac history admitted for ischemic CVA 2 days ago who developed left sided chest discomfort "8" this morning, radiating down left arm that was alleviated with nitro. ECG shows NSR with LBBB. She denies having experienced this chest discomfort in the past. Recent echo shows EF 45%, review of tele shows no concerning arrhythmias Patient currently resting comfortably without chest pain, SOB or palpitations. . Review of Systems Consitutional: DENIES: Fatigue, Fever, Chills, Weight gain, Weight loss Respiratory: DENIES: Cough, Snoring, Shortness of breath, Wheezing, Sputum production Cardiovascular: COMPLAINS OF: See HPI, Chest pain, DENIES: Palpitations, Syncope, Tachycardia Gastrointestinal: DENIES: Nausea, Vomiting, Change in bowel habits, Reflux, Bloody stools, Melena Past Family Social History Allergies: Coded Allergies: No Known Allergies (Verified , 03/17/17) Past Medical History Hypertension Past Surgical History Cataract surgery Tonsillectomy Reported Medications Reported Meds & Active Scripts Active Reported Lisinopril 20 Mg Tab 20 Mg PO BID Active Ordered Medications Current Medications Medications (Trade) Dose Ordered Sig/Andreas Route Start Time Stop Time Status Last Admin (NS Flush) 2 ml UNSCH PRN IV FLUSH 03/17/17 10:45 (NS Flush) 2 ml BID IV FLUSH 03/17/17 21:00 03/18/17 22:22 (Tylenol) 650 mg Q4H PRN PO 03/17/17 10:45 (Zofran Inj) 4 mg Q6H PRN IVP 03/17/17 10:45 (Restoril) 15 mg HS PRN PO 03/17/17 10:45 (Narcan Inj) 0.4 mg UNSCH PRN IV 03/17/17 10:45 (Milk Of Magnesia Liq) 30 ml Q12H PRN PO 03/17/17 10:45 (Aspirin) 325 mg DAILY PO 03/17/17 11:00 03/18/17 09:19 (Pravachol) 40 mg HS PO 03/17/17 21:00 03/18/17 22:21 (Prinivil) 20 mg BID PO 03/18/17 21:00 03/18/17 22:21 Family History Noncontributory Social History Hx of tobacco use, smoked 0.5 to 1 ppd x 30 years, quit at age 47 Occasional alcohol use Denies any illicit drug use Pt lives locally with her Physical Exam Vital Signs Vital Signs Date Time Temp Pulse Resp B/P Pulse Ox O2 Delivery O2 Flow Rate FiO2 03/19/17 04:30 97.9 68 17 120/60 96 03/19/17 00:00 98.3 66 17 131/73 96 03/18/17 20:00 98.1 73 17 135/79 97 03/18/17 15:55 95.0 66 20 165/74 97 03/18/17 11:43 97.7 68 20 160/82 93 03/18/17 10:29 70 03/18/17 08:21 98.7 80 20 197/88 94 Physical Exam HEAD: Atraumatic. Normocephalic. EYES: Pupils equal and round. ENT: No nasal bleeding or discharge. Mucous membranes pink and moist. NECK: Trachea midline. No JVD. CARDIOVASCULAR: Regular rate and rhythm. No murmurs. RESPIRATORY: No accessory muscle use. Clear to auscultation. Breath sounds equal bilaterally. GASTROINTESTINAL: Abdomen soft, non-tender, nondistended. MUSCULOSKELETAL: Extremities without clubbing, cyanosis, or edema. No obvious deformities. NEUROLOGICAL: Awake and alert. No obvious cranial nerve deficits. Normal speech. PSYCHIATRIC: Appropriate mood and affect; insight and judgment normal. Laboratory Laboratory Tests Test 03/18/17 03/18/17 10:03 10:33 Sodium Level 143 Potassium Level 3.7 Chloride Level 108 Carbon Dioxide Level 26.5 Anion Gap 9 Blood Urea Nitrogen 17 Creatinine 0.76 Estimat Glomerular Filtration 73 Rate Random Glucose 105 Hemoglobin A1c 5.7 Calcium Level 8.5 Triglycerides Level 126 Cholesterol Level 212 LDL Cholesterol 119 HDL Cholesterol 68.1 Cholesterol/HDL Ratio 3.11 White Blood Count 8.7 Red Blood Count 4.59 Hemoglobin 14.1 Hematocrit 41.7 Mean Corpuscular Volume 90.8 Mean Corpuscular Hemoglobin 30.8 Mean Corpuscular Hemoglobin 34.0 Concent Red Cell Distribution Width 13.8 Platelet Count 216 Mean Platelet Volume 7.4 Neutrophils (%) (Auto) 67.0 Lymphocytes (%) (Auto) 24.8 Monocytes (%) (Auto) 7.2 Eosinophils (%) (Auto) 0.5 Basophils (%) (Auto) 0.5 Neutrophils # (Auto) 5.8 Lymphocytes # (Auto) 2.2 Monocytes # (Auto) 0.6 Eosinophils # (Auto) 0.0 Basophils # (Auto) 0.0 CBC Comment DIFF FINAL Differential Comment Ammonia 26 Date/Time Procedure Status Source Growth 03/17/17 09:15 Urine Culture - Preliminary Resulted Urine Catheterized Urine IMMATURE GROWTH - REINCUBATE Result Diagram: 03/18/17 1033 03/18/17 1003 Imaging Last 24 hours Impressions Chest X-Ray 03/19/17 0000 Signed Impressions: Service Date/Time: Sunday, March 19, 2017 06:45 - CONCLUSION: Normal examination. Tay Montez MD Assessment and Plan Problem List: (1) CVA (cerebrovascular accident) (2) HTN (hypertension) (3) Chest pain Assessment and Plan 81 yo WF admitted 2 days ago for confusion and facial droop, found to have ischemic CVA. This morning she developed chest pain at rest, alleviated with nitro. chest pain- ECG NSR LBB. SBP improving. review of tele shows no concerning arrhythmias. Echo EF 45%, neg troponin. Will evaluate with lexiscan. keep npo. Problem Qualifiers (1) CVA (cerebrovascular accident): Qualified Code: I63.9 - Cerebrovascular accident (CVA), unspecified mechanism Manisha Castle Mar 19, 2017 08:06
[2017-03-19 08:24] LABS: CREATINE KINASE 47 U/L (26-192)
[2017-03-19] MEDS: SODIUM CHLORIDE 0.9% FLUSH 10 ML FLUSH IV FLUSH SCH ×2 (08:25→21:00)
[2017-03-19] MEDS: ASPIRIN 325 MG TAB PO SCH (08:28)
[2017-03-19] MEDS: LISINOPRIL 20 MG TAB PO SCH ×2 (08:28→21:13)
[2017-03-19] MEDS ORDERED: REGADENOSON INJ 0.4 MG/5 ML SYR ONE (10:33)
--- NOTE | 2017-03-19 12:40 | RADRPT ---
EXAM DATE/TIME: 03/19/2017 10:00 [facility] COMPARISON: No previous studies available for comparison. INDICATIONS : Mid chest pain for one day. Angina. Left bundle branch block. DOSE: 27.3 mCi Tc99m Myoview at stress. 8.7 mCi Tc99m Myoview at rest. 0.4 mg Lexiscan STRESS SYMPTOMS: Dyspnea and headache. EJECTION FRACTION: > 70% MEDICAL HISTORY : Stroke. Hypertension. SURGICAL HISTORY : Tonsillectomy. ENCOUNTER: Initial ACUITY: 1 day PAIN SCALE: 8/10 LOCATION: Midsternal chest TECHNIQUE: The patient underwent pharmacologic stress with infusion of prescribed dose. Continuous ECG tracing was monitored during stress. Gated SPECT imaging was performed after stress and conventional SPECT i maging was performed at rest. The examination was performed on a SPECT/CT scanner, both attenuation and non-corrected datasets were reviewed. FINDINGS: DISTRIBUTION: The maximum perfused segment at stress is in the the lateral wall of the inferior wall. Moderate gut activity does obscure the inferior wall. PERFUSION STUDY: There is no redistribution with rest. GATED STUDY: There is intact wall motion and thickening without hypokinetic or dyskinetic segments. CONCLUSION: Negative for infarct or ischemia. Patient does have the left bundle-branch block by history. This s hould not affect the accuracy of this exam. RISK CATEGORY: Low (<1% Annual Mortality Rate) Ming Rodriguez MD FACR on March 19, 2017 at 12:34 Board Certified Radiologist. This report was verified electronically.
--- NOTE | 2017-03-19 13:52 | HHI.PR ---
Subjective Remarks Pt experienced some chest pain this morning that was relieved by Nitro No further chest pain currently Pt had a Lexiscan which was negative. Objective Vitals Vital Signs Date Time Temp Pulse Resp B/P Pulse Ox O2 Delivery O2 Flow Rate FiO2 03/19/17 13:00 97.2 99 20 120/75 96 03/19/17 12:42 63 03/19/17 07:30 97.5 83 20 158/76 92 03/19/17 04:30 97.9 68 17 120/60 96 03/19/17 00:00 98.3 66 17 131/73 96 03/18/17 20:00 98.1 73 17 135/79 97 03/18/17 15:55 95.0 66 20 165/74 97 03/18/17 03/18/17 03/19/17 14:59 22:59 06:59 Intake Total 720 ml 360 ml Balance 720 ml 360 ml Intake Oral 720 ml 360 ml # Voids 4 # Bowel Movements 0 Result Diagram: 03/18/17 1033 03/18/17 1003 Other Results Last Impressions Myocardial Perfusion Scan Nuc Med 03/19/17 0000 Signed Impressions: Service Date/Time: Sunday, March 19, 2017 10:00 - CONCLUSION: Negative for infarct or ischemia. Patient does have the left bundle-branch block by history. This should not affect the accuracy of this exam. RISK CATEGORY: Low (<1% % Annual Mortality Rate) Ming Rodriguez MD FACR Chest X-Ray 03/19/17 0000 Signed Impressions: Service Date/Time: Sunday, March 19, 2017 06:45 - CONCLUSION: Normal examination. Tay Montez MD Head CT 03/17/17 0904 Signed Impressions: Service Date/Time: Friday, March 17, 2017 09:24 - CONCLUSION: 1. Evolving area of cortical infarct measuring approximately 1.7 x 0.8 cm. This is centered in the left caudate nucleus and insular cortex. Jackson Rodriguez MD Head Magnetic Resonance Angiography 03/17/17 0000 Signed Impressions: Service Date/Time: Friday, March 17, 2017 11:31 - CONCLUSION: 1. 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 2. No large or central vessel occlusion identified within the intracranial circulation. Jackson Rodriguez MD Carotid Artery Ultrasound 03/17/17 0000 Signed Impressions: Service Date/Time: Friday, March 17, 2017 17:39 - CONCLUSION: Carotid bifurcation atherosclerosis, minimal on the right and focally moderate on the left. No hemodynamically significant narrowing. Rian Cuenca MD Brain MRI 03/17/17 0000 Signed Impressions: Service Date/Time: Friday, March 17, 2017 11:31 - CONCLUSION: 1. Focal area of acute/subacute cortical infarct involving the left caudate nucleus and insular cortex. No findings to indicate hemorrhage are seen. 2. Mild microvascular ischemic demyelinative change. Jackson Rodriguez MD Imaging Last Impressions Chest X-Ray 03/17/17 1037 Signed Impressions: Service Date/Time: Friday, March 17, 2017 10:47 - CONCLUSION: No acute disease. Sergio Paz Jr., MD Head CT 03/17/17 0904 Signed Impressions: Service Date/Time: Friday, March 17, 2017 09:24 - CONCLUSION: 1. Evolving area of cortical infarct measuring approximately 1.7 x 0.8 cm. This is centered in the left caudate nucleus and insular cortex. Jackson Rodriguez MD Head Magnetic Resonance Angiography 03/17/17 0000 Signed Impressions: Service Date/Time: Friday, March 17, 2017 11:31 - CONCLUSION: 1. 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 2. No large or central vessel occlusion identified within the intracranial circulation. Jackson Rodriguez MD Carotid Artery Ultrasound 03/17/17 0000 Signed Impressions: Service Date/Time: Friday, March 17, 2017 17:39 - CONCLUSION: Carotid bifurcation atherosclerosis, minimal on the right and focally moderate on the left. No hemodynamically significant narrowing. Rian Cuenca MD Brain MRI 03/17/17 0000 Signed Impressions: Service Date/Time: Friday, March 17, 2017 11:31 - CONCLUSION: 1. Focal area of acute/subacute cortical infarct involving the left caudate nucleus and insular cortex. No findings to indicate hemorrhage are seen. 2. Mild microvascular ischemic demyelinative change. Jackson Rodriguez MD Objective Remarks General: NAD, AAOx3 Chest: CTA Cardiac: Regular Abd: +BS, soft ND/NT Ext: No edema A/P Problem List: (1) CVA (cerebrovascular accident) Status: Acute Plan: - Pt is a 81 y/o with HTN who initially developed symptoms of slurred speech and confusion two days prior to admission. - She was seen in the ED on 03/15/[address] at that time was negative. Pt left AMA. - She presented back to the ED on 03/17/17 with continued waxing and waning of her symptoms. - Head CT (03/17) --> Evolving area of cortical infarct measuring approximately 1.7 x 0.8 cm, centered in the left caudate nucleus and insular cortex. - Brain MRI (03/17) --> Focal area of acute/subacute cortical infarct involving the left caudate nucleus and insular cortex. No findings to indicate hemorrhage are seen. Mild microvascular ischemic demyelinative change. 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 No large or central vessel occlusion identified within the intracranial circulation. - Neurology following. - Carotid US --> Carotid bifurcation atherosclerosis, minimal on the right and focally moderate on the left. No hemodynamically significant narrowing. - 2D echo --> EF 45-50%, grade 1 diastolic dysfunction, mild mitral valve regurg , trace tricuspid valve regurg - Holter Monitor --> Pending - Telemetry --> NSR with HR in the 70's - Neuro checks - ASA - FLP with LDL 119, HDL 68.1, Total cholesterol 212, Triglycerides 126. Pt started on Pravachol - TSH/Free T4, Vitamin B12, Folate, Ammonia are all stable. - PT/OT - Supportive care (2) HTN (hypertension) Status: Chronic Plan: - Pt takes Lisinopril 20mg BID at home - We will resume this today (3) Chest pain Status: Acute Plan: - Pt experienced chest pain this morning that was relieved with Nitro - EKG noted NSR with LBBB. - No concerning arrhythmias on telemetry. - CE are negative - Cardiology was consulted - Lexiscan (03/19) --> Negative for infarct or ischemia. Assessment and Plan Patient examined. Assessment and plan formulated with Brittani Davis PA-C. I agree with the above. Problem Qualifiers (1) CVA (cerebrovascular accident): Brittani Davis 16, 2017 13:52 Ramin Mireles DO Mar 23, 2017 22:31
[2017-03-19] MEDS ORDERED: ASPI325T PO (13:57)
[2017-03-19] MEDS ORDERED: PRAV40TA PO (13:57)
--- NOTE | 2017-03-19 14:50 | EKG ---
Date Performed: 03/19/2017 Time Performed: 07:16:53 PTAGE: 81 years EKG: Sinus rhythm LEFT BUNDLE BRANCH BLOCK ABNORMAL ECG PREVIOUS TRACING : 03/17/2017 09.10 DOCTOR: Joey Jeffers Interpretating Date/Time 03/19/2017 14:49:02
[2017-03-19] MEDS: PRAVASTATIN SOD 40 MG TAB PO SCH (21:14)
[2017-03-20 00:19] VITALS: BP 174/79; PULSE 66; RESP 20; TEMP 97.6; O2SAT 96
[2017-03-20 04:54] VITALS: BP 163/79; PULSE 69; RESP 18; TEMP 98.2; O2SAT 97
[2017-03-20] MEDS: ASPIRIN 325 MG TAB PO SCH (08:32)
[2017-03-20] MEDS: LISINOPRIL 20 MG TAB PO SCH (08:32)
[2017-03-20] MEDS: SODIUM CHLORIDE 0.9% FLUSH 10 ML FLUSH IV FLUSH SCH (09:00)
--- NOTE | 2017-03-20 09:20 | HM ---
Date Performed: 03/17/2017 Time Performed: 17:30:00 HOOKUP DATE: 03/17/17 05:30:00 PM Mon ANALYSIS START TIME: 03/17/2017 5:35:00 PM ANALYSIS END TIME: 03/18/2017 5:39:00 PM PATIENT AGE: 81 PATIENT HEIGHT: 64 PATIENT WEIGHT: 132 DRUG LIST: ROOM 1510 PATIENT DIAGNOSIS: CVA TEST NARRATIVE: The patient's average heart rate was 72 BPM. No episodes of tachycardia wer e noted. No episodes of bradycardia were noted. No pauses exceeding 2.0 seconds were noted. 155 ventricular ectopics, which represented < 1% of the total beat count, were noted. The highest ve ntricular ectopic frequency occurred from 09:00 AM to 10:00 AM Tue. During this time 22 VE(s) occurr ed. Ventricular ectopics were observed as 155 isolated beat(s) only. No couplets or runs were noted . 5 supraventricular ectopics, which represented < 1% of the total beat count, were noted. The h ighest supraventricular ectopic frequency occurred from 07:00 PM to 08:00 PM Mon. During this time 1 SVE(s) occurred. No episodes of ST depression (defined as -1.0 mm or more) were noted in channel 1. Multiple episodes of ST depression (defined as -1.0 mm or more) were noted in channel 2. The m aximum depression of -1.8 mm occurred at 04:44:43 PM Tue. No episodes of ST depression (defined as - 1.0 mm or more) were noted in channel 3. NO DIARY WAS GIVEN TO PATIENT POOR QUALITY TRACING THROUGHOU T THE FINAL 12 HOURS OF MONITORING TEST INTERPRETATION: 1) Sinus rhythm , no arrhythmias noted 2) No episodes of tachycardia/bradycardia noted 3) Rare PVC/PAC 4) ST depressi on noted in channel 2 5) No diary returned Signed by : Joey Jeffers
[2017-03-20 10:50] VITALS: BP 151/67; PULSE 80; RESP 16; TEMP 97.8; O2SAT 95
--- NOTE | 2017-03-20 14:21 | HHI.DS ---
Discharge Summary Admission Date Mar 17, 2017 at 10:40 Discharge Date: Mar 20, 2017 Admitting Diagnosis CVA (1) CVA (cerebrovascular accident) Diagnosis: Principal (2) HTN (hypertension) Diagnosis: Secondary (3) Chest pain Diagnosis: Secondary Consultants Dr. Louie Hutchison - Neurology Brief History Mrs. Angela is a 81 y/o female with HTN who was brought to the ED on 03/17/17 with complaints of confusion and facial droop. Pt had been seen in the ED on 07/20 with slurred speech and confusion. Her BP at that time was elevated to 212 /106. Head CT at that time was normal but pt was recommended admission. She left AMA at that time. The pts symptoms have waxed and waned over the last two days especially the facial droop. This morning she started having some "shaking " around 7:30AM. Pt presented back to the ED this morning around 0830AM and again was hypertensive upon arrival with BP 203/89. She said she took all her morning pills including her blood pressure medication prior to coming in. Head CT in the ED noted an evolving area of cortical infarct measuring approximately 1.7 x 0.8 cm, centered in the left caudate nucleus and insular cortex. Neurology was consulted in the ED. CBC/BMP: 03/18/17 1033 03/18/17 1003 Significant Findings Laboratory Tests Test 03/18/17 03/19/17 10:03 07:43 Chloride Level 108 MEQ/L (98-107) Estimat Glomerular Filtration 73 ML/MIN (>89) Rate Cholesterol Level 212 MG/DL (120-200) LDL Cholesterol 119 MG/DL (0-99) HDL Cholesterol 68.1 MG/DL (40.0-60.0) Troponin I LESS THAN 0.02 NG/ML (0.02-0.05) Imaging Last Impressions Myocardial Perfusion Scan Nuc Med 03/19/17 0000 Signed Impressions: Service Date/Time: Sunday, March 19, 2017 10:00 - CONCLUSION: Negative for infarct or ischemia. Patient does have the left bundle-branch block by history. This should not affect the accuracy of this exam. RISK CATEGORY: Low (<1% % Annual Mortality Rate) Ming Rodriguez MD FACR Chest X-Ray 03/19/17 0000 Signed Impressions: Service Date/Time: Sunday, March 19, 2017 06:45 - CONCLUSION: Normal examination. Tay Montez MD Head CT 03/17/17 0904 Signed Impressions: Service Date/Time: Friday, March 17, 2017 09:24 - CONCLUSION: 1. Evolving area of cortical infarct measuring approximately 1.7 x 0.8 cm. This is centered in the left caudate nucleus and insular cortex. Jackson Rodriguez MD Head Magnetic Resonance Angiography 03/17/17 0000 Signed Impressions: Service Date/Time: Friday, March 17, 2017 11:31 - CONCLUSION: 1. 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 2. No large or central vessel occlusion identified within the intracranial circulation. Jackson Rodriguez MD Carotid Artery Ultrasound 03/17/17 0000 Signed Impressions: Service Date/Time: Friday, March 17, 2017 17:39 - CONCLUSION: Carotid bifurcation atherosclerosis, minimal on the right and focally moderate on the left. No hemodynamically significant narrowing. Rian Cuenca MD Brain MRI 03/17/17 0000 Signed Impressions: Service Date/Time: Friday, March 17, 2017 11:31 - CONCLUSION: 1. Focal area of acute/subacute cortical infarct involving the left caudate nucleus and insular cortex. No findings to indicate hemorrhage are seen. 2. Mild microvascular ischemic demyelinative change. Jackson Rodriguez MD PE at Discharge General: NAD, AAOx3 Chest: CTA Cardiac: Regular Abd: +BS, soft ND/NT Ext: No edema Hospital Course CVA (cerebrovascular accident) - Pt is a 81 y/o with HTN who initially developed symptoms of slurred speech and confusion two days prior to admission. - She was seen in the ED on 03/15/[address] at that time was negative. Pt left AMA. - She presented back to the ED on 03/17/17 with continued waxing and waning of her symptoms. - Head CT (03/17) --> Evolving area of cortical infarct measuring approximately 1.7 x 0.8 cm, centered in the left caudate nucleus and insular cortex. - Brain MRI (03/17) --> Focal area of acute/subacute cortical infarct involving the left caudate nucleus and insular cortex. No findings to indicate hemorrhage are seen. Mild microvascular ischemic demyelinative change. 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 No large or central vessel occlusion identified within the intracranial circulation. - Neurology following. - Carotid US --> Carotid bifurcation atherosclerosis, minimal on the right and focally moderate on the left. No hemodynamically significant narrowing. - 2D echo --> EF 45-50%, grade 1 diastolic dysfunction, mild mitral valve regurg , trace tricuspid valve regurg - Holter Monitor --> Sinus rhythm, no arrhythmias, rare PVC/PAC, no episodes of tachycardia/bradycardia noted - Telemetry --> NSR with HR in the 70's - Neuro checks - ASA/Pravastatin - FLP with LDL 119, HDL 68.1, Total cholesterol 212, Triglycerides 126. Pt started on Pravachol - TSH/Free T4, Vitamin B12, Folate, Ammonia are all stable. HTN (hypertension) - Pt takes Lisinopril 20mg BID at home - This was resumed on 03/18 - Patients BP started to trend up slightly on the day of discharge but patient is anxious to go home. She is to keep a BP log of her BP readings at home to bring to Dr. Reynolds for review Chest pain - Pt experienced chest pain on 03/19 that was relieved with Nitro - EKG noted NSR with LBBB. - No concerning arrhythmias on telemetry. - CE are negative - Cardiology was consulted - Lexiscan (03/19) --> Negative for infarct or ischemia. Pt will need to followup with her PCP, Dr. Sha Reynolds, in 1 week, call for an appt. Pt will need to followup with Neurology, Dr. Hutchison, in 2 weeks, call for an appt. Pt Condition on Discharge: Stable Discharge Disposition: Disch w/ Home Health Serv Discharge Instructions DIET: Follow Instructions for: Heart Healthy Diet Activities you can perform: Regular-No Restrictions Follow up Referrals: Neurology - 2 Weeks with Louie Hutchison MD PCP Follow-up - [address] Sha Reynolds New Medications: Aspirin (Aspirin) 325 Mg Tab 325 MG PO DAILY for CVA, #30 TAB 0 Refills Pravastatin (Pravachol) 40 Mg Tab 40 MG PO HS for cholesterol management, #31 TAB Continued Medications: Lisinopril (Lisinopril) 20 Mg Tab 20 MG PO BID, #30 TAB 0 Refills Additional Information Patient examined. Assessment and plan formulated with Brittani Davis PA-C. I agree with the above. Brittani Davis Mar 20, 2017 14:21 Ramin Mireles DO Mar 23, 2017 22:32
== END 2017-03-20 16:50 | disposition home health service (06) | DRG 66 ==
LOC: NEPC 08:48 → NEDA 10:40 → N05A 14:44
PROVIDERS: ADMIT Hospitalist; ATTEND Hospitalist
DX: I63.9 Cerebral infarction, unspecified (principal); I44.7 Left bundle-branch block, unspecified; I10 Essential (primary) hypertension; R47.81 Slurred speech; R29.810 Facial weakness; R07.9 Chest pain, unspecified; Z87.891 Personal history of nicotine dependence
CPT/HCPCS: 70450; 70544; 70551; 71010; 76937; 78452; 80048; 80061; 81001; 82140; 82550; 82607; 82746; 83036; 84439; 84443; 84484; 85025; 85610; 85730; 86592; 87086; 93005; 93017; 93225; 93226; 93306; 93880; 96360; 99285; A9502; J2785; J7040; J7050

== ENCOUNTER 2017-04-05 07:48 | Emergency (ER) | payer MEDICARE ==
[~2017-04-05] VITALS: Ht 162.6 cm; Wt 60.0 kg
[~2017-04-05 07:48] MED LIST changes: +ASPI325T PO; +PRAV40TA PO
[2017-04-05 07:52] VITALS: BP 192/91; PULSE 78; RESP 16; TEMP 97.8; O2SAT 95
--- NOTE | 2017-04-05 08:20 | PD ---
HPI . High blood pressure Chief Complaint: Hypertension Time Seen by Provider: 08:08 Travel History International Travel<30 days: No Contact w/Intl Traveler<30days: No Traveled to known affect area: No History of Present Illness HPI This patient presents with a chief complaint of high blood pressure. She took her blood pressure this morning prior to taking her blood pressure medication. She became alarmed and presented to the emergency department. She has no symptoms. Relieving factor has been oral blood pressure medication. PFSH Past Medical History Arthritis: No Asthma: No Autoimmune Disease: No Heart Rhythm Problems: No Cancer: No Cardiovascular Problems: Yes (HTN) High Cholesterol: No Chemotherapy: No Chest Pain: No Congestive Heart Failure: No COPD: No Cerebrovascular Accident: Yes Diabetes: No Diminished Hearing: No Endocrine: No GERD: No Genitourinary: No Headaches: No Hepatitis: No Hiatal Hernia: No Hypertension: Yes Immune Disorder: No Kidney Stones: No Musculoskeletal: No Neurologic: No Psychiatric: No Reproductive: No Respiratory: No Migraines: No Radiation Therapy: No Renal Failure: No Seizures: No Sickle Cell Disease: No Sleep Apnea: No Thyroid Disease: No Ulcer: No Past Surgical History Abdominal Surgery: No AICD: No Arteriovenous Shunt: No Cardiac Surgery: No Ear Surgery: No Endocrine Surgery: No Eye Surgery: Yes (cataract removal of the right eye) Genitourinary Surgery: No Gynecologic Surgery: Yes (BENIGN GROWTH ON CERVIX 40+ YRS AGO) Insulin Pump: No Joint Replacement: No Neurologic Surgery: No Oral Surgery: Yes (TONSILLECTOMY) Pacemaker: No Thoracic Surgery: No Tonsillectomy: Yes Other Surgery: Yes Social History Alcohol Use: No Tobacco Use: No Substance Use: No Allergies-Medications (Allergen,Severity, Reaction): Coded Allergies: No Known Allergies (Verified , 03/17/17) Reported Meds & Prescriptions Reported Meds & Active Scripts Active Aspirin 325 Mg Tab 325 Mg PO DAILY Pravachol (Pravastatin) 40 Mg Tab 40 Mg PO HS Reported Lisinopril 20 Mg Tab 20 Mg PO BID Review of Systems Except as stated in HPI: all other systems reviewed are Neg Eyes: No: Blurred Vision HENT: No: Headaches Cardiovascular: No: Chest Pain or Discomfort Respiratory: No: Shortness of Breath Musculoskeletal: No: Edema Neurologic: No: Weakness, Dizziness, Syncope, Focal Abnormalities, Headache, Change in Mentation, Slurred Speech, Paresthesia, Incontinence, Seizures Physical Exam Narrative Vital Signs Date Time Temp Pulse Resp B/P (MAP) Pulse Ox O2 Delivery O2 Flow Rate FiO2 04/05/17 07:52 97.8 78 16 192/91 (124) 95 Repeat blood pressure was about 140/90. GENERAL: Patient is awake and alert and in no distress. SKIN: warm/dry. HEAD: Normocephalic. EYES: Pupils equal and round. No scleral icterus. No injection or drainage. ENT: No nasal bleeding or discharge. Mucous membranes pink and moist. NECK: Trachea midline. Full range of motion without pain.. CARDIOVASCULAR: Regular rate and rhythm. Heart sounds are normal. RESPIRATORY: No accessory muscle use. Clear to auscultation. Breath sounds equal bilaterally. GASTROINTESTINAL: Abdomen soft. Nontender. Bowel sounds present. Nondistended. . MUSCULOSKELETAL: No obvious deformities. NEUROLOGICAL: Awake and alert. No obvious cranial nerve deficits. Motor grossly within normal limits. Normal speech. [id number] exam is intact. PSYCHIATRIC: Appropriate mood and affect; insight and judgment normal. Data Data Last Documented VS Vital Signs Date Time Temp Pulse Resp B/P (MAP) Pulse Ox O2 Delivery O2 Flow Rate FiO2 04/05/17 07:52 97.8 78 16 192/91 (124) 95 [facility] Medical Decision Making Medical Screen Exam Complete: Yes Emergency Medical Condition: Yes Differential Diagnosis My differential diagnosis of high blood pressure includes but is not limited to "white coat syndrome," anxiety, essential hypertension, hypertensive emergency. Narrative Course This patient presents with a chief complaint of high blood pressure. She has no signs or symptoms suggestive of hypertensive emergency such as chest pain, encephalopathy, acute peripheral edema, shortness of breath. The history, exam, diagnostic testing, and current condition do not suggest any significant pathology to warrant further testing, continued ED treatment, admission, or surgical evaluation at this point. The patient's condition is stable and appropriate for discharge. Diagnosis Primary Impression: HTN (hypertension) Qualified Codes: I10 - Essential (primary) hypertension Patient Instructions: Chronic Hypertension (DC), General Instructions Additional Instructions: Come to the emergency department if you develop signs or symptoms suggestive of hypertensive emergency such as chest pain, confusion, acute swelling, shortness of breath. Otherwise, your blood pressure needs to be managed by your primary care provider. Disposition: 01 DISCHARGE HOME Condition: Stable Albertina Nava MD Apr 05, 2017 08:20
--- NOTE | 2017-04-05 17:49 | EKG ---
Date Performed: 04/05/2017 Time Performed: 08:10:05 PTAGE: 82 years EKG: Sinus rhythm LEFT BUNDLE BRANCH BLOCK ABNORMAL ECG NO PREVIOUS TRACING DOCTOR: Tay Matute Interpretating Date/Time 04/05/2017 17:47:22
[2017-04-05] MEDS ORDERED: BACT800T5 PO (23:05)
== END 2017-04-05 08:52 | disposition home or self-care (01) ==
LOC: NEPE 07:48
DX: I10 Essential (primary) hypertension (principal)
CPT/HCPCS: 93005; 99281

== ENCOUNTER 2017-04-05 21:57 | Emergency (ER) | payer MEDICARE ==
[~2017-04-05] VITALS: Ht 162.6 cm; Wt 60.0 kg
[2017-04-05 22:01] VITALS: BP 179/92; PULSE 117; RESP 16; TEMP 96.9; O2SAT 96
[2017-04-05] MEDS ORDERED: SODIUM CHLOR 0.9% 1000 ML INJ 1,000 ML IV SCH (22:14)
[2017-04-05] MEDS ORDERED: SODIUM CHLORIDE 0.9% FLUSH 10 ML FLUSH IV FLUSH PRN (22:15)
[2017-04-05 22:22] VITALS: BP 177/77; PULSE 89; RESP 18; O2SAT 97
--- NOTE | 2017-04-05 22:35 | PD ---
HPI Chief Complaint: Back/ Neck Pain or Injury Time Seen by Provider: 22:09 Travel History International Travel<30 days: No Contact w/Intl Traveler<30days: No Traveled to known affect area: No History of Present Illness HPI Patient is 82 years old and complains of shaking at home. She reports a fever as high as 101.0 at home. She also complains of pain in the region of the left neck, intermittent with no pain in the ER at time of evaluation. She's had no shortness of breath chest pain nausea vomiting diaphoresis headache or weakness. No cough lately. PFSH Past Medical History Arthritis: No Asthma: No Autoimmune Disease: No Heart Rhythm Problems: No Cancer: No Cardiovascular Problems: Yes (HTN) High Cholesterol: No Chemotherapy: No Chest Pain: No Congestive Heart Failure: No COPD: No Cerebrovascular Accident: Yes Diabetes: No Diminished Hearing: No Endocrine: No GERD: No Genitourinary: No Headaches: No Hepatitis: No Hiatal Hernia: No Hypertension: Yes Immune Disorder: No Kidney Stones: No Musculoskeletal: No Neurologic: No Psychiatric: No Reproductive: No Respiratory: No Migraines: No Radiation Therapy: No Renal Failure: No Seizures: No Sickle Cell Disease: No Sleep Apnea: No Thyroid Disease: No Ulcer: No Tetanus Vaccination: Unknown ?: Not Past Surgical History Abdominal Surgery: No AICD: No Arteriovenous Shunt: No Cardiac Surgery: No Ear Surgery: No Endocrine Surgery: No Eye Surgery: Yes (cataract removal of the right eye) Genitourinary Surgery: No Gynecologic Surgery: Yes (BENIGN GROWTH ON CERVIX 40+ YRS AGO) Insulin Pump: No Joint Replacement: No Neurologic Surgery: No Oral Surgery: Yes (TONSILLECTOMY) Pacemaker: No Thoracic Surgery: No Tonsillectomy: Yes Other Surgery: Yes Social History Alcohol Use: No Tobacco Use: No Substance Use: No Allergies-Medications (Allergen,Severity, Reaction): Coded Allergies: No Known Allergies (Verified , 04/05/17) Reported Meds & Prescriptions Reported Meds & Active Scripts Active Aspirin 325 Mg Tab 325 Mg PO DAILY Pravachol (Pravastatin) 40 Mg Tab 40 Mg PO HS Reported Lisinopril 20 Mg Tab 20 Mg PO BID Review of Systems Except as stated in HPI: all other systems reviewed are Neg General / Constitutional: Positive: Fever Cardiovascular: No: Chest Pain or Discomfort Physical Exam Narrative GENERAL: 82 yo F, WNWD, NAD SKIN: Warm and dry. HEAD: Atraumatic. Normocephalic. EYES: Pupils equal and round. No scleral icterus. No injection or drainage. ENT: No nasal bleeding or discharge. Mucous membranes pink and moist. NECK: Trachea midline. No JVD. CARDIOVASCULAR: Regular rate and rhythm. RESPIRATORY: No accessory muscle use. Clear to auscultation. Breath sounds equal bilaterally. GASTROINTESTINAL: Abdomen soft, non-tender, nondistended. Hepatic and splenic margins not palpable. MUSCULOSKELETAL: Extremities without clubbing, cyanosis, or edema. No obvious deformities. NEUROLOGICAL: Awake and alert. No obvious cranial nerve deficits. Motor grossly within normal limits. Five out of 5 muscle strength in the arms and legs. Normal speech. No appreciable tremor. PSYCHIATRIC: Appropriate mood and affect; insight and judgment normal. Data Data Last Documented VS Vital Signs Date Time Temp Pulse Resp B/P (MAP) Pulse Ox O2 Delivery O2 Flow Rate FiO2 04/05/17 22:22 89 18 177/77 (110) 97 Room Air 04/05/17 22:01 96.9 VS reviewed Orders Orders Basic Metabolic Panel (Bmp) (04/05/17 22:14) Complete Blood Count With Diff (04/05/17 22:14) Urinalysis - C+S If Indicated (04/05/17 22:14) Iv Access Insert/Monitor (04/05/17 22:14) Ecg Monitoring (04/05/17 22:14) Oximetry (04/05/17 22:14) Sodium Chlor 0.9% 1000 Ml Inj (Ns 1000 M (04/05/17 22:14) Sodium Chloride 0.9% Flush (Ns Flush) (04/05/17 22:15) Chest, Single Ap (04/05/17 22:14) Urine Culture (04/05/17 22:21) Sulfamet-Trimeth Ds 800-160 Mg (Bactrim (04/05/17 23:15) Labs Laboratory Tests Test 04/05/17 22:21 White Blood Count 10.9 TH/MM3 Red Blood Count 4.84 MIL/MM3 Hemoglobin 14.8 GM/DL Hematocrit 44.2 % Mean Corpuscular Volume 91.4 FL Mean Corpuscular Hemoglobin 30.5 PG Mean Corpuscular Hemoglobin Concent 33.4 % Red Cell Distribution Width 14.4 % Platelet Count 244 TH/MM3 Mean Platelet Volume 7.8 FL Neutrophils (%) (Auto) 54.3 % Lymphocytes (%) (Auto) 34.8 % Monocytes (%) (Auto) 7.8 % Eosinophils (%) (Auto) 1.2 % Basophils (%) (Auto) 1.9 % Neutrophils # (Auto) 5.9 TH/MM3 Lymphocytes # (Auto) 3.8 TH/MM3 Monocytes # (Auto) 0.8 TH/MM3 Eosinophils # (Auto) 0.1 TH/MM3 Basophils # (Auto) 0.2 TH/MM3 CBC Comment DIFF FINAL Differential Comment Urine Color YELLOW Urine Turbidity HAZY Urine pH 6.0 Urine Specific [place] 1.011 Urine Protein NEG mg/dL Urine Glucose (UA) NEG mg/dL Urine Ketones NEG mg/dL Urine Occult Blood NEG Urine Nitrite NEG Urine Bilirubin NEG Urine Urobilinogen LESS THAN 2.0 MG/DL Urine Leukocyte Esterase LARGE Urine RBC 4 /hpf Urine WBC 56 /hpf Urine Squamous Epithelial Cells 1 /hpf Urine Amorphous Sediment RARE Urine Bacteria MANY /hpf Urine Mucus FEW /lpf Microscopic Urinalysis Comment CULTURE INDICATED Blood Urea Nitrogen 21 MG/DL Creatinine 0.83 MG/DL Random Glucose 121 MG/DL Calcium Level 9.6 MG/DL Sodium Level 142 MEQ/L Potassium Level 3.9 MEQ/L Chloride Level 106 MEQ/L Carbon Dioxide Level 25.4 MEQ/L Anion Gap 11 MEQ/L Estimat Glomerular Filtration Rate 66 ML/MIN [facility] Medical Decision Making Medical Screen Exam Complete: Yes Emergency Medical Condition: Yes Differential Diagnosis UTI, pneumonia, viral syndrome, tremor, anxiety, medication side effect, electronimbalance Narrative Course CBC & BMP Diagram 04/05/17 22:21 Calcium Level 9.6 UA: NO UTI PT WITH UTI. BACTRIM DS. RETURN PRECAUTIONS DISCUSSED. Diagnosis Primary Impression: Cystitis Referrals: Primary Care Physician 2 days Additional Instructions: You have a choice when it comes to health care, and we are glad that you chose [facility]. Hopefully, we have met your expectations on today's visit. You are welcome to return to [facility] at any time, as we are committed to meeting the health care needs of our community. IF FEVER OR SHAKING PERSISTS INTO TOMORROW AFTERNOON PLEASE RETURN TO ER. Med/Other Pt SpecificInfo: Prescription(s) given Scripts Sulfamethoxazole-Trimethoprim (Bactrim DS) 800-160 Mg Tab 1 TAB PO BID for Infection for 5 Days, #6 TAB 0 Refills Prov: Jackson Jeffers MD 04/05/17 Disposition: 01 DISCHARGE HOME Condition: Jackson Gomez MD Apr 05, 2017 22:35
[2017-04-05 22:36] LABS: AUTOMATED NEUTROPHIL # 5.9 TH/MM3 (1.8-7.7); BASOPHIL # 0.2 TH/MM3 (0-0.2); BASOPHIL % 1.9 % (0.0-2.0); EOSINOPHIL # 0.1 TH/MM3 (0-0.4); EOSINOPHIL % 1.2 % (0.0-4.0); HEMATOCRIT 44.2 % (35.0-46.0); HEMO FLAGS DIFF FINAL; LYMPH % 34.8 % (9.0-44.0); LYMPHOCYTE # 3.8 TH/MM3 (1.0-4.8); MEAN CELL VOLUME 91.4 FL (80.0-100.0); MEAN CORPUSCULAR HEMOGLOBIN 30.5 PG (27.0-34.0); MEAN CORPUSCULAR HGB CONC 33.4 % (32.0-36.0); MONO % 7.8 % (0.0-8.0); NEUT % 54.3 % (16.0-70.0); PLATELET COUNT 244 TH/MM3 (150-450); RED BLOOD COUNT 4.84 MIL/MM3 (4.00-5.30); RED CELL DISTRIBUTION WIDTH 14.4 % (11.6-17.2); WHITE BLOOD COUNT 10.9 TH/MM3 (4.0-11.0)
--- NOTE | 2017-04-05 22:36 | RADRPT ---
EXAM DATE/TIME: 04/05/2017 22:31 [facility] COMPARISON: CHEST SINGLE AP, March 19, 2017, 6:45. INDICATIONS : Fever. MEDICAL HISTORY : Stroke. Hypertension. SURGICAL HISTORY : Tonsillectomy. ENCOUNTER: Initial ACUITY: 1 day PAIN SCORE: 0/10 LOCATION: Bilateral chest FINDINGS: A single view of the chest demonstrates the lungs to be symmetrically aerated without evidence of mas s, infiltrate or effusion. The cardiomediastinal contours are unremarkable. Mild atherosclerotic maria c nges are present in the aorta. Osseous structures are intact. CONCLUSION: No acute disease. There is no evidence of pneumonia. Amish Woodall MD on April 05, 2017 at 22:34 Board Certified Radiologist. This report was verified electronically.
[2017-04-05 22:41] LABS: BACTERIA, URINE MANY /hpf; BLOOD, URINE NEG (NEG); GLUCOSE,URINE NEG (NEG); KETONE, URINE NEG (NEG); MUCUS URINE FEW /lpf (OCC); NITRITE,URINE NEG (NEG); SQUAMOUS EPITHELIAL CELL URINE 1 /hpf (0-5); URINE COLOR YELLOW (YELLW/STRAW)
[2017-04-05 22:42] LABS: COMMENT (UR) CULTURE INDICATED; CULTURE IF INDICATED CULTURE INDICATED
[2017-04-05 22:55] LABS: BICARBONATE 25.4 MEQ/L (21.0-32.0); POTASSIUM 3.9 MEQ/L (3.5-5.1)
[2017-04-05] MEDS ORDERED: BACT800T5 PO (23:05)
[2017-04-05] MEDS ORDERED: SULFAMETHOXAZOLE-TRIMETHOPRIM DS 800-160 MG TAB PO ONE (23:15)
== END 2017-04-06 00:06 | disposition home or self-care (01) ==
LOC: NEPE 21:57
DX: N30.90 Cystitis, unspecified without hematuria (principal); B96.89 Other specified bacterial agents as the cause of diseases classified elsewhere
CPT/HCPCS: 71010; 80048; 81001; 85025; 87086; 96360; 99284; J7030

== ENCOUNTER 2017-05-09 04:15 | Observation (INO) | payer MEDICARE ==
[~2017-05-09] VITALS: Ht 162.6 cm; Wt 63.5 kg
[~2017-05-09 04:15] MED LIST changes: +BACT800T5 PO
[2017-05-09] MEDS ORDERED: IOHEXOL 350 MG/ML 10 ML VIAL (for RAD DIAG) IVCONTRAST ONE (04:16)
[2017-05-09 04:19] VITALS: BP 182/83; PULSE 92; RESP 16; TEMP 97.8; O2SAT 96
[2017-05-09 04:35] VITALS: O2SAT 94
[2017-05-09] MEDS ORDERED: AMLO5TAB2 PO (04:40)
[2017-05-09] MEDS ORDERED: AMOX875T2 PO (04:40)
[2017-05-09] MEDS ORDERED: ALPR0.25 PO (04:40)
[2017-05-09] MEDS ORDERED: SODIUM CHLORIDE 0.9% FLUSH 10 ML FLUSH IVF PRN (04:45)
[2017-05-09 04:56] VITALS: BP 146/67; PULSE 80; RESP 20; O2SAT 94
[2017-05-09] MEDS ORDERED: ASPIRIN 81 MG CHEW TAB PO ONE (05:00)
[2017-05-09] MEDS: NITROGLYCERIN 0.4 MG SL 25 TABS/BTL SL SCH ×3 (05:02→05:10)
--- NOTE | 2017-05-09 05:03 | PD ---
HPI Chief Complaint: Chest Pain Time Seen by Provider: 04:40 Travel History International Travel<30 days: No Contact w/Intl Traveler<30days: No Traveled to known affect area: No History of Present Illness HPI Patient is an 82-year-old female who presents to emergency room with complaints of chest pain. Patient reports that she woke up around 4:30 to 5 AM tonight and began having left sided chest pain. She reports no shortness of breath, nausea vomiting with symptoms. Patient reports that symptoms feel sharp and stabbing in nature, makes pain better or worse. Denies history of ACS, DC or cardiac stents in the past. She does not have a respiratory care assistant. Patient denies history of PE or DVT, denies any recent illnesses, denies any recent travels. PFSH Past Medical History Arthritis: No Asthma: No Autoimmune Disease: No Heart Rhythm Problems: No Cancer: No Cardiovascular Problems: Yes (HTN) High Cholesterol: Yes Chemotherapy: No Chest Pain: No Congestive Heart Failure: No COPD: No Cerebrovascular Accident: Yes Diabetes: No Diminished Hearing: No Endocrine: No GERD: No Genitourinary: No Headaches: No Hepatitis: No Hiatal Hernia: No Hypertension: Yes Immune Disorder: No Kidney Stones: No Musculoskeletal: No Neurologic: No Psychiatric: No Reproductive: No Respiratory: No Migraines: No Radiation Therapy: No Renal Failure: No Seizures: No Sickle Cell Disease: No Sleep Apnea: No Thyroid Disease: No Ulcer: No Tetanus Vaccination: Unknown Influenza Vaccination: Yes Past Surgical History Abdominal Surgery: No AICD: No Arteriovenous Shunt: No Cardiac Surgery: No Ear Surgery: No Endocrine Surgery: No Eye Surgery: Yes (cataract removal of the right eye) Genitourinary Surgery: No Gynecologic Surgery: Yes (BENIGN GROWTH ON CERVIX 40+ YRS AGO) Insulin Pump: No Joint Replacement: No Neurologic Surgery: No Oral Surgery: Yes (TONSILLECTOMY) Pacemaker: No Thoracic Surgery: No Tonsillectomy: Yes Other Surgery: Yes Social History Alcohol Use: No Tobacco Use: No Substance Use: No Allergies-Medications (Allergen,Severity, Reaction): Coded Allergies: No Known Allergies (Verified , 04/05/17) Reported Meds & Prescriptions Reported Meds & Active Scripts Active Aspirin 325 Mg Tab 325 Mg PO DAILY Pravachol (Pravastatin) 40 Mg Tab 40 Mg PO HS Reported Amoxicillin-Clavulanate 875-125 mg Tab 875 Mg PO BID not for use in CrCl <30 mL/minute Alprazolam 0.25 Mg Tab 0.25 Mg PO Q12HR PRN Amlodipine (Amlodipine Besylate) 5 Mg Tab 5 Mg PO BID Lisinopril 20 Mg Tab 20 Mg PO BID Review of Systems General / Constitutional: No: Fever Eyes: No: Visual changes HENT: No: Headaches Cardiovascular: Positive: Chest Pain or Discomfort Respiratory: No: Shortness of Breath Gastrointestinal: No: Abdominal Pain Genitourinary: No: Dysuria Musculoskeletal: No: Pain Skin: No Rash Neurologic: No: Weakness Psychiatric: No: Depression Endocrine: No: Polydipsia Hematologic/Lymphatic: No: Easy Bruising Physical Exam Narrative GENERAL: mild distress SKIN: Focused skin assessment warm/dry. HEAD: Atraumatic. Normocephalic. EYES: Pupils equal and round. No scleral icterus. No injection or drainage. ENT: No nasal bleeding or discharge. Mucous membranes pink and moist. NECK: Trachea midline. No JVD. CARDIOVASCULAR: Regular rate and rhythm. No murmur appreciated. RESPIRATORY: No accessory muscle use. Clear to auscultation. Breath sounds equal bilaterally. GASTROINTESTINAL: Abdomen soft, non-tender, nondistended. Hepatic and splenic margins not palpable. MUSCULOSKELETAL: No obvious deformities. No clubbing. No cyanosis. No edema. NEUROLOGICAL: Awake and alert. No obvious cranial nerve deficits. Motor grossly within normal limits. Normal speech. PSYCHIATRIC: Appropriate mood and affect; insight and judgment normal. Data Data Last Documented VS Vital Signs Date Time Temp Pulse Resp B/P (MAP) Pulse Ox O2 Delivery O2 Flow Rate FiO2 05/09/17 05:37 77 18 131/72 (91) 96 Room Air 05/09/17 04:19 97.8 Orders Orders Electrocardiogram (05/09/17 ) B-Type Natriuretic Peptide (05/09/17 04:31) Ckmb (Isoenzyme) Profile (05/09/17 04:31) Complete Blood Count With Diff (05/09/17 04:31) Comprehensive Metabolic Panel (05/09/17 04:31) Prothrombin Time / Inr (Pt) (05/09/17 04:31) Act Partial Throm Time (Ptt) (05/09/17 04:31) Troponin I (05/09/17 04:31) Chest, Single Ap (05/09/17 04:31) Ecg Monitoring (05/09/17 04:31) Iv Access Insert/Monitor (05/09/17 04:31) Oximetry (05/09/17 04:31) Sodium Chloride 0.9% Flush (Ns Flush) (05/09/17 04:45) Aspirin Chew (Aspirin Chew) (05/09/17 05:00) Nitroglycerin Sl (Nitrostat Sl) (05/09/17 05:00) Ct Pulmonary Angiogram (05/09/17 05:48) Iohexol 350 Inj (Omnipaque 350 Inj) (05/09/17 04:16) Admit Order (Ed Use Only) (05/09/17 06:26) Potassium Chloride (Kcl) (05/09/17 06:30) Activity Bed Rest With Brp (05/09/17 06:27) Vital Signs (Adult) Q4H (05/09/17 06:27) Cardiac Rhythm .As Directed (05/09/17 06:27) Notify Dr: Other .PRN (05/09/17 06:27) Notify DrSánchez Parameters (05/09/17 06:27) Ckmb (Isoenzyme) Profile (05/09/17 07:50) Ckmb (Isoenzyme) Profile (05/09/17 10:50) Troponin I (05/09/17 07:50) Troponin I (05/09/17 10:50) Electrocardiogram (05/09/17 06:27) Electrocardiogram (05/09/17 09:27) ^ Obtain (05/09/17 06:27) Counsel / Telemetry KATI.Q8H (05/09/17 06:27) Labs Laboratory Tests Test 05/09/17 04:50 White Blood Count 8.8 TH/MM3 Red Blood Count 4.49 MIL/MM3 Hemoglobin 13.8 GM/DL Hematocrit 40.7 % Mean Corpuscular Volume 90.5 FL Mean Corpuscular Hemoglobin 30.8 PG Mean Corpuscular Hemoglobin Concent 34.0 % Red Cell Distribution Width 14.0 % Platelet Count 237 TH/MM3 Mean Platelet Volume 8.2 FL Neutrophils (%) (Auto) 48.7 % Lymphocytes (%) (Auto) 40.7 % Monocytes (%) (Auto) 8.2 % Eosinophils (%) (Auto) 1.9 % Basophils (%) (Auto) 0.5 % Neutrophils # (Auto) 4.3 TH/MM3 Lymphocytes # (Auto) 3.6 TH/MM3 Monocytes # (Auto) 0.7 TH/MM3 Eosinophils # (Auto) 0.2 TH/MM3 Basophils # (Auto) 0.0 TH/MM3 CBC Comment DIFF FINAL Differential Comment Prothrombin Time 10.1 SEC Prothromb Time International Ratio 0.9 RATIO Activated Partial Thromboplast Time 29.6 SEC Blood Urea Nitrogen 12 MG/DL Creatinine 0.77 MG/DL Random Glucose 107 MG/DL Total Protein 7.1 GM/DL Albumin 4.0 GM/DL Calcium Level 8.9 MG/DL Alkaline Phosphatase 71 U/L Aspartate Amino Transf (AST/SGOT) 24 U/L Alanine Aminotransferase (ALT/SGPT) 22 U/L Total Bilirubin 0.5 MG/DL Sodium Level 143 MEQ/L Potassium Level 3.4 MEQ/L Chloride Level 110 MEQ/L Carbon Dioxide Level 24.3 MEQ/L Anion Gap 9 MEQ/L Estimat Glomerular Filtration Rate 72 ML/MIN Total Creatine Kinase 61 U/L Troponin I LESS THAN 0.02 NG/ML B-Type Natriuretic Peptide 11 PG/ML MDM Medical Decision Making Medical Screen Exam Complete: Yes Emergency Medical Condition: Yes Medical Record Reviewed: Yes Interpretation(s) EKG at 0428: NSR at 86bpm, lbbb, qt/qtc: 426/469, no change from previous ekg from 04/05/17 Vital Signs Date Time Temp Pulse Resp B/P (MAP) Pulse Ox O2 Delivery O2 Flow Rate FiO2 05/09/17 04:56 80 20 146/67 (93) 94 05/09/17 04:35 94 05/09/17 04:35 83 05/09/17 04:19 97.8 92 16 182/83 (116) 96 Room Air Differential Diagnosis Differential includes ACS, arrhythmia, PE, pneumonia, electrolyte abnormality Narrative Course 82-year-old female who presents to emergency room with complaints of chest pain. Patient was placed on a court monitor upon arrival to the emergency room. Labs including cardiac enzymes ordered. X-ray of the chest was ordered. Sublingual nitroglycerin was ordered to see if this helps with her chest pain symptoms. Vital Signs Date Time Temp Pulse Resp B/P (MAP) Pulse Ox O2 Delivery O2 Flow Rate FiO2 05/09/17 05:37 77 18 131/72 (91) 96 Room Air 05/09/17 04:56 80 20 146/67 (93) 94 05/09/17 04:35 94 05/09/17 04:35 83 05/09/17 04:19 97.8 92 16 182/83 (116) 96 Room Air Laboratory Tests Test 05/09/17 04:50 White Blood Count 8.8 TH/MM3 (4.0-11.0) Red Blood Count 4.49 MIL/MM3 (4.00-5.30) Hemoglobin 13.8 GM/DL (11.6-15.3) Hematocrit 40.7 % (35.0-46.0) Mean Corpuscular Volume 90.5 FL (80.0-100.0) Mean Corpuscular Hemoglobin 30.8 PG (27.0-34.0) Mean Corpuscular Hemoglobin Concent 34.0 % (32.0-36.0) Red Cell Distribution Width 14.0 % (11.6-17.2) Platelet Count 237 TH/MM3 (150-450) Mean Platelet Volume 8.2 FL (7.0-11.0) Neutrophils (%) (Auto) 48.7 % (16.0-70.0) Lymphocytes (%) (Auto) 40.7 % (9.0-44.0) Monocytes (%) (Auto) 8.2 % (0.0-8.0) Eosinophils (%) (Auto) 1.9 % (0.0-4.0) Basophils (%) (Auto) 0.5 % (0.0-2.0) Neutrophils # (Auto) 4.3 TH/MM3 (1.8-7.7) Lymphocytes # (Auto) 3.6 TH/MM3 (1.0-4.8) Monocytes # (Auto) 0.7 TH/MM3 (0-0.9) Eosinophils # (Auto) 0.2 TH/MM3 (0-0.4) Basophils # (Auto) 0.0 TH/MM3 (0-0.2) CBC Comment DIFF FINAL Differential Comment Prothrombin Time 10.1 SEC (9.8-11.6) Prothromb Time International Ratio 0.9 RATIO Activated Partial Thromboplast Time 29.6 SEC (24.3-30.1) Blood Urea Nitrogen 12 MG/DL (7-18) Creatinine 0.77 MG/DL (0.50-1.00) Random Glucose 107 MG/DL (74-106) Total Protein 7.1 GM/DL (6.4-8.2) Albumin 4.0 GM/DL (3.4-5.0) Calcium Level 8.9 MG/DL (8.5-10.1) Alkaline Phosphatase 71 U/L (45-117) Aspartate Amino Transf (AST/SGOT) 24 U/L (15-37) Alanine Aminotransferase (ALT/SGPT) 22 U/L (10-53) Total Bilirubin 0.5 MG/DL (0.2-1.0) Sodium Level 143 MEQ/L (136-145) Potassium Level 3.4 MEQ/L (3.5-5.1) Chloride Level 110 MEQ/L (98-107) Carbon Dioxide Level 24.3 MEQ/L (21.0-32.0) Anion Gap 9 MEQ/L (5-15) Estimat Glomerular Filtration Rate 72 ML/MIN (>89) Total Creatine Kinase 61 U/L (26-192) Troponin I LESS THAN 0.02 NG/ML B-Type Natriuretic Peptide 11 PG/ML (0-100) CTA with no evidence of PE. Patient with no chest pain at this time, plan to obs in the chest pain unit. Diagnosis Primary Impression: Chest pain Qualified Codes: R07.9 - Chest pain, unspecified Admitting Information Admitting Physician Requests: Brittani Gabriel DO May 09, 2017 05:02
--- NOTE | 2017-05-09 05:03 | RADRPT ---
EXAM DATE/TIME: 05/09/2017 04:38 [facility] COMPARISON: CHEST SINGLE AP, April 05, 2017, 22:31. INDICATIONS : Chest pain. MEDICAL HISTORY : Stroke. Hypertension SURGICAL HISTORY : Tonsillectomy. ENCOUNTER: Initial ACUITY: 1 day PAIN SCORE: 7/10 LOCATION: Left cranial FINDINGS: A single view of the chest demonstrates the lungs to be symmetrically aerated without evidence of mas s, infiltrate or effusion. The cardiomediastinal contours are unremarkable. Osseous structures are intact. CONCLUSION: No acute disease. Sergio Paz Jr., MD on May 09, 2017 at 5:01 Board Certified Radiologist. This report was verified electronically.
[2017-05-09 05:24] LABS: AUTOMATED NEUTROPHIL # 4.3 TH/MM3 (1.8-7.7); BASOPHIL % 0.5 % (0.0-2.0); EOSINOPHIL # 0.2 TH/MM3 (0-0.4); EOSINOPHIL % 1.9 % (0.0-4.0); HEMATOCRIT 40.7 % (35.0-46.0); HEMO FLAGS DIFF FINAL; LYMPH % 40.7 % (9.0-44.0); LYMPHOCYTE # 3.6 TH/MM3 (1.0-4.8); MEAN CELL VOLUME 90.5 FL (80.0-100.0); MEAN CORPUSCULAR HEMOGLOBIN 30.8 PG (27.0-34.0); MONO % 8.2 % (0.0-8.0); NEUT % 48.7 % (16.0-70.0); PLATELET COUNT 237 TH/MM3 (150-450); RED BLOOD COUNT 4.49 MIL/MM3 (4.00-5.30); WHITE BLOOD COUNT 8.8 TH/MM3 (4.0-11.0)
[2017-05-09 05:32] LABS: APTT (PATIENT) 29.6 SEC (24.3-30.1); INTERNATIONAL NORMALIZED RATIO 0.9 RATIO; PROTHROMBIN TIME - PATIENT 10.1 SEC (9.8-11.6)
[2017-05-09 05:37] VITALS: BP 131/72; PULSE 77; RESP 18; O2SAT 96
[2017-05-09 05:37] LABS: ALT (GPT) 22 U/L (10-53); ANION GAP 9 MEQ/L (5-15); AST (GOT) 24 U/L (15-37); BICARBONATE 24.3 MEQ/L (21.0-32.0); BLOOD UREA NITROGEN 12 MG/DL (7-18); CHLORIDE 110 MEQ/L (98-107); GLOMERULAR FILTRATION RATE 72 ML/MIN (>89); POTASSIUM 3.4 MEQ/L (3.5-5.1); SODIUM (NA) 143 MEQ/L (136-145)
[2017-05-09 05:41] LABS: ALKALINE PHOSPHATASE 71 U/L (45-117); TOTAL BILIRUBIN ADULT 0.5 MG/DL (0.2-1.0)
[2017-05-09 05:42] LABS: CREATINE KINASE 61 U/L (26-192)
--- NOTE | 2017-05-09 06:26 | RADRPT ---
EXAM DATE/TIME: 05/09/2017 05:50 [facility] COMPARISON: No previous studies available for comparison. INDICATIONS : Chest pain. IV CONTRAST: 75 cc Omnipaque 350 (iohexol) IV RADIATION DOSE: 5.63 CTDIvol (mGy) MEDICAL HISTORY : Hypertension. SURGICAL HISTORY : None. ENCOUNTER: Initial ACUITY: 1 day PAIN SCALE: 8/10 LOCATION: chest TECHNIQUE: Volumetric scanning of the chest was performed using a pulmonary embolism protocol MIP images were re constructed. Using automated exposure control and adjustment of the mA and/or kV according to patien t size, radiation dose was kept as low as reasonably achievable to obtain optimal diagnostic quality images. DICOM format image data is available electronically for review and comparison. Follow-up recommendations for detected pulmonary nodules are based at a minimum on nodule size and pa tient risk factors according to Fleischner Society Guidelines. FINDINGS: PULMONARY ARTERIES: No filling defects are seen in the pulmonary arteries through the segmental level. LUNGS: Diffuse emphysematous changes. Linear bibasilar atelectasis. No infiltrates. PLEURAE: There is no pleural thickening or pleural effusion. MEDIASTINUM: There is good visualization of the great vessels of the middle mediastinum. No evidence of mediastin al or hilar adenopathy/mass. MUSCULOSKELETAL: Within normal limits for patient age. MISCELLANEOUS: The visualized upper abdominal organs demonstrate no acute abnormality. CONCLUSION: 1. No pulmonary emboli. 2. Emphysematous changes. 3. Bibasilar atelectasis. Sergio Paz Jr., MD on May 09, 2017 at 6:23 Board Certified Radiologist. This report was verified electronically.
[2017-05-09] MEDS ORDERED: POTASSIUM CHLORIDE 10 MEQ CONTROLLED RELEASE TAB PO ONE (06:30)
[2017-05-09 07:42] LABS: CREATINE KINASE 55 U/L (26-192)
[2017-05-09] MEDS ORDERED: amLODIPine BESYLATE 5 MG TAB PO SCH (09:00)
[2017-05-09] MEDS ORDERED: LISINOPRIL 20 MG TAB PO SCH (09:00)
--- NOTE | 2017-05-09 09:07 | HHI.HP ---
[facility] Primary Care Physician Sha Reynolds MD Chief Complaint Chest pain History of Present Illness This is a 82-year-old female that presents to ED complaining of chest pain. Patient states that she was awoken 3:00 this morning with a left-sided sharp chest discomfort that radiated to the left side of her rib cage. It lasted 5 minutes but he recurred maybe 3 more times. She is not recall being short of breath, nauseous, or diaphoretic. She then begins to cry and asks if there is something that we can give her for her stress. When asked what she is stressed about, she responds "this." She has Xanax at home but does not take it. Cannot recall anything at home is bothering her. Found nothing in particular bring on the discomfort. Denies history of CAD. She had a CVA in March of this year which she states affected her memory. She states she came to the ED to be evaluated for hypertension and they told her she was having a stroke. At that same hospitalization she had a nonischemic Lexiscan March 19, 2017. EF greater than 70%. Review of Systems General: Patient denies fevers, chills recent, and recent travel HEENT: Patient denies headache, sore throat, difficulty swallowing. Cardiovascular: Has the chest discomfort as mentioned above. Denies sensation of heart beating rapidly or irregularly. No syncope. Respiratory: Denies shortness of breath or inspirational chest discomfort. Denies coughing wheezing or hemoptysis. GI: Patient denies nausea, vomiting, diarrhea, abdominal pain, bloody stools. Musculoskeletal: Patient denies joint pain or edema. Denies calf pain or edema. Neurovascular: Patient denies numbness, tingling, weakness in extremities. Denies headache. Endocrine: Denies polyuria and polydipsia. Hematologic: Denies easy bruising. Skin: Denies rash or itching. Past Family Social History Allergies: Coded Allergies: No Known Allergies (Verified , 04/05/17) Past Medical History Hypertension, hyperlipidemia, CVA March of this year. Denies diabetes and CAD. Past history of tobacco abuse, quit 25 years ago. Past Surgical History Noncontributory. Reported Medications Reported Meds & Active Scripts Active Aspirin 325 Mg Tab 325 Mg PO DAILY Pravachol (Pravastatin) 40 Mg Tab 40 Mg PO HS Reported Alprazolam 0.25 Mg Tab 0.25 Mg PO Q12HR PRN Amlodipine (Amlodipine Besylate) 5 Mg Tab 5 Mg PO BID Lisinopril 20 Mg Tab 20 Mg PO BID Active Ordered Medications Current Medications Medications (Trade) Dose Ordered Sig/Andreas Route Start Time Stop Time Status Last Admin (NS Flush) 2 ml UNSCH PRN IVF 05/09/17 04:45 Family History States her mother had an SD at age 79. Social History Quit smoking 25 years ago but prior that she smoked one pack of cigarettes daily for 20 years. Denies alcohol or illicit drugs. Physical Exam Vital Signs Vital Signs Date Time Temp Pulse Resp B/P (MAP) Pulse Ox O2 Delivery O2 Flow Rate FiO2 05/09/17 05:37 77 18 131/72 (91) 96 Room Air 05/09/17 04:56 80 20 146/67 (93) 94 05/09/17 04:35 94 05/09/17 04:35 83 05/09/17 04:19 97.8 92 16 182/83 (116) 96 Room Air Physical Exam GENERAL: This is a well-nourished, well-developed patient, in no apparent distress. Patient speaks in clear complete sentences. Patient is pleasant. HEENT: Head is atraumatic and normocephalic. Neck is supple without lymphadenopathy and trachea is midline. No JVD or carotid bruits. CARDIOVASCULAR: Regular rate and rhythm without murmurs, gallops, or rubs. RESPIRATORY: Clear to auscultation. Breath sounds equal bilaterally. No wheezes , rales, or rhonchi. Chest wall is nontender. No use of accessory muscles. GASTROINTESTINAL: Abdomen is nontender, nondistended. Abdomen soft. No obvious pulsatile mass or bruit. No CVA tenderness. Strong femoral pulses bilaterally. Normal bowel sounds in all quadrants. MUSCULOSKELETAL: Patient is moving upper and lower extremities freely. No calf tenderness or edema, no Homans sign. Strong pulses in upper and lower extremities. NEUROLOGICAL: Patient is alert and oriented. Cranial nerves 2-12 are grossly intact. No focal deficits and speech is clear. SKIN: No rash and turgor is normal. Laboratory Laboratory Tests Test 05/09/17 04:50 05/09/17 07:00 White Blood Count 8.8 Red Blood Count 4.49 Hemoglobin 13.8 Hematocrit 40.7 Mean Corpuscular Volume 90.5 Mean Corpuscular Hemoglobin 30.8 Mean Corpuscular Hemoglobin Concent 34.0 Red Cell Distribution Width 14.0 Platelet Count 237 Mean Platelet Volume 8.2 Neutrophils (%) (Auto) 48.7 Lymphocytes (%) (Auto) 40.7 Monocytes (%) (Auto) 8.2 Eosinophils (%) (Auto) 1.9 Basophils (%) (Auto) 0.5 Neutrophils # (Auto) 4.3 Lymphocytes # (Auto) 3.6 Monocytes # (Auto) 0.7 Eosinophils # (Auto) 0.2 Basophils # (Auto) 0.0 CBC Comment DIFF FINAL Differential Comment Prothrombin Time 10.1 Prothromb Time International Ratio 0.9 Activated Partial Thromboplast Time 29.6 Blood Urea Nitrogen 12 Creatinine 0.77 Random Glucose 107 Total Protein 7.1 Albumin 4.0 Calcium Level 8.9 Alkaline Phosphatase 71 Aspartate Amino Transf (AST/SGOT) 24 Alanine Aminotransferase (ALT/SGPT) 22 Total Bilirubin 0.5 Sodium Level 143 Potassium Level 3.4 Chloride Level 110 Carbon Dioxide Level 24.3 Anion Gap 9 Estimat Glomerular Filtration Rate 72 Total Creatine Kinase 61 55 Troponin I LESS THAN 0.02 LESS THAN 0.02 B-Type Natriuretic Peptide 11 Result Diagram: 05/09/1744905/09/17449 Imaging Last [address] Angiography 05/09/17 0548 Signed Impressions: Service Date/Time: Tuesday, May 09, 2017 05:50 - CONCLUSION: 1. No pulmonary emboli. 2. Emphysematous changes. 3. Bibasilar atelectasis. Sergio Paz Jr., MD Chest X-Ray 05/09/17 0431 Signed Impressions: Service Date/Time: Tuesday, May 09, 2017 04:38 - CONCLUSION: No acute disease. Sergio Paz Jr., MD Course EKGs have sinus rhythm with left bundle branch block. Caprini VTE Risk Assessment Caprini VTE Risk Assessment: Mod/High Risk (score >= 2) Caprini Risk Assessment Model Point Value = 1 Point Value = 2 Point Value = 3 Point Value = 5 Age 41-60 Minor surgery BMI > 25 kg/m2 Swollen legs Varicose veins or History of unexplained or recurrent spontaneous Oral contraceptives or hormone replacement Sepsis (< 1 month) Serious lung disease, including pneumonia (< 1 month) Abnormal pulmonary function Acute myocardial infarction Congestive heart failure (< 1 month) History of inflammatory bowel disease Medical patient at bed rest Age 61-74 Arthroscopic surgery Major open surgery (> 45 min) Laparoscopic surgery (> 45 min) Malignancy Confined to bed (> 72 hours) Immobilizing plaster cast Central venous access Age >= 75 History of VTE Family history of VTE Factor V Leiden Prothrombin [id number] Lupus anticoagulant Anticardiolipin antibodies Elevated serum homocysteine Heparin-induced thrombocytopenia Other congenital or acquired thrombophilia Stroke (< 1 month) Elective arthroplasty Hip, pelvis, or leg fracture Acute spinal cord injury (< 1 month) Prophylaxis Regimen Total Risk Factor Score Risk Level Prophylaxis Regimen 0-1 Low Early ambulation 2 Moderate Order ONE of the following: *Sequential Compression Device (SCD) *Heparin 5000 units SQ BID 3-4 Higher Order ONE of the following medications: *Heparin 5000 units SQ TID *Enoxaparin/Lovenox 40 mg SQ daily (WT < 150 kg, CrCl > 30 mL/min) *Enoxaparin/Lovenox 30 mg SQ daily (WT < 150 kg, CrCl > 10-29 mL/min) *Enoxaparin/Lovenox 30 mg SQ BID (WT < 150 kg, CrCl > 30 mL/min) AND/OR *Sequential Compression Device (SCD) 5 or more Highest Order ONE of the following medications: *Heparin 5000 units SQ TID (Preferred with Epidurals) *Enoxaparin/Lovenox 40 mg SQ daily (WT < 150 kg, CrCl > 30 mL/min) *Enoxaparin/Lovenox 30 mg SQ daily (WT < 150 kg, CrCl > 10-29 mL/min) *Enoxaparin/Lovenox 30 mg SQ BID (WT < 150 kg, CrCl > 30 mL/min) AND *Sequential Compression Device (SCD) Assessment and Plan Assessment and Plan * Chest pain: Patient will continue to have serial cardiac enzymes and EKGs for ruling out purposes. She will be seen by Dr. Alicea of cardiology in the chest pain center and at that time further plan will be decided. She did have a nonischemic Lexiscan [place] of this year. * Hypertension: Continue current medication. * Hyperlipidemia: Continue current medication. Patient is stable at this time. She is agreeable to this plan. Zach Tyler May 09, 2017 09:07
[2017-05-09] MEDS ORDERED: ALPRAZolam 0.25 MG TAB PO ONE (09:15)
[2017-05-09] MEDS ORDERED: RESP: ALBUTEROL 2.5 MG/IPRATROPIUM 0.5 MG NEB (PRN) INH (09:15)
[2017-05-09] MEDS ORDERED: cloNIDine HCL 0.1 MG TAB PO PRN (09:15)
[2017-05-09 10:26] VITALS: BP 153/74; PULSE 83; RESP 18; TEMP 97.8; O2SAT 96
[2017-05-09 11:40] LABS: CREATINE KINASE 56 U/L (26-192)
[2017-05-09] MEDS ORDERED: HYDR25TA5 PO (12:52)
--- NOTE | 2017-05-09 12:55 | HHI.DCPOC ---
Discharge Care Plan Diagnosis: (1) Hyperlipidemia (2) Chest pain (3) HTN (hypertension) Goals to Promote Your Health * To prevent worsening of your condition and complications * To maintain your health at the optimal level Directions to Meet Your Goals Take your medications as prescribed Follow your dietary instruction Follow activity as directed Keep your appointments as scheduled Take your immunizations and boosters as scheduled If your symptoms worsen call your PCP, if no PCP go to Urgent Care Center or Emergency Room Smoking is Dangerous to Your Health. Avoid second hand smoke Call the 24-hour hour crisis hotline for domestic abuse at Zach Tyler May 09, 2017 12:55
--- NOTE | 2017-05-09 13:13 | EKG ---
Date Performed: 05/09/2017 Time Performed: 04:28:16 PTAGE: 82 years EKG: Sinus rhythm LEFT BUNDLE BRANCH BLOCK ABNORMAL ECG PREVIOUS TRACING : 04/05/2017 08.10 Compared to prior tracing no significant change DOCTOR: Jackson Meadows Interpretating Date/Time 05/09/2017 13:10:40
[2017-05-09] MEDS ORDERED: PRAVASTATIN SOD 40 MG TAB PO SCH (21:00)
--- NOTE | 2017-05-10 05:24 | EKG ---
Date Performed: 05/09/2017 Time Performed: 10:40:52 PTAGE: 82 years EKG: Sinus rhythm LEFT BUNDLE BRANCH BLOCK ABNORMAL ECG PREVIOUS TRACING : 05/09/2017 04.28 DOCTOR: Reji Balderas Interpretating Date/Time 05/10/2017 05:15:46
--- NOTE | 2017-05-10 05:27 | EKG ---
Date Performed: 05/09/2017 Time Performed: 07:01:08 PTAGE: 82 years EKG: Sinus rhythm LEFT BUNDLE BRANCH BLOCK ABNORMAL ECG NO PREVIOUS TRACING DOCTOR: Reji Balderas Interpretating Date/Time 05/10/2017 05:16:51
[2017-05-10] MEDS ORDERED: ASPIRIN 325 MG TAB PO SCH (09:00)
== END 2017-05-09 13:41 | disposition home or self-care (01) ==
LOC: NEPC 04:15 → NEDA 06:27 → NEPHCDU 08:52
PROVIDERS: ADMIT Internal Medicine Interventional Cardiology; ATTEND Internal Medicine Interventional Cardiology
DX: R07.9 Chest pain, unspecified (principal); E78.5 Hyperlipidemia, unspecified; I10 Essential (primary) hypertension; I44.7 Left bundle-branch block, unspecified; J98.11 Atelectasis; Z86.73 Personal history of transient ischemic attack (TIA), and cerebral infarction without residual deficits; Z87.891 Personal history of nicotine dependence
CPT/HCPCS: 71010; 71275; 80053; 82550; 83880; 84484; 85025; 85610; 85730; 93005; 99285; G0378; Q9967